=== PATIENT | female | born 1985 | race Two or more races ===

== ENCOUNTER 2024-07-13 08:09 | Emergency (ER) | payer MEDICAID, SELFPAY ==
[2024-07-13 08:10] VITALS: BMI 35.6
[2024-07-13 08:17] VITALS: BP 140/73; PULSE 100; RESP 20; TEMP 36.9; O2SAT 99
--- NOTE | 2024-07-13 08:35 | PD.EDLOWEX ---
Lower Extremity Injury RME/HPI General Chief Complaint: Extremity Injury, Lower Stated Complaint: LEFT KNEE PAIN SINCE THIS AM Time Seen by Provider: 07/13/24 08:13 Arrival date/time: 07/13/24 08:09 39-year-old female presents emergency department complains of left knee pain ongoing for the last couple of months after injury. Patient reports she is frustrated she has been unable to get an MRI Limitations: no limitations Related Data Home Medications ?Medication ?Instructions ?Recorded ?Confirmed prenat.vits,ivon,[id number] 1 tab PO QDAY 12/17/20 12/17/20 Previous Rx's ?Medication ?Instructions ?Recorded ibuprofen 800 mg tablet 800 mg PO TID PRN pain #30 tabs 05/09/21 ibuprofen 800 mg tablet 800 mg PO TID PRN pain #30 tabs 01/09/22 cephalexin 500 mg capsule 500 mg PO BID #20 caps 01/26/22 ibuprofen 800 mg tablet 800 mg PO TID PRN pain #30 tabs 06/09/22 acetaminophen 500 mg tablet 500 mg PO Q6H PRN pain #60 tabs 01/01/24 (Tylenol Extra Strength) ibuprofen 600 mg tablet 600 mg PO Q6H PRN pain #30 tabs 01/01/24 acetaminophen 500 mg capsule 1,000 mg (2 x 500 mg) PO Q6H PRN 01/05/24 fever or pain #30 caps amoxicillin 500 mg capsule 500 mg PO TID #30 caps 01/05/24 ibuprofen 800 mg tablet 800 mg PO TID PRN pain #30 tabs 01/05/24 ondansetron 4 mg disintegrating 4 mg PO Q8H PRN nausea and 01/13/24 tablet vomiting #20 tabs ibuprofen 800 mg tablet 800 mg PO TID PRN pain #30 tabs 04/14/24 cyclobenzaprine 10 mg tablet 10 mg PO TID PRN muscle spasm 10 07/13/24 days #30 tab-caps ibuprofen 800 mg tablet 800 mg PO TID PRN pain #30 tabs 07/13/24 Allergies Allergy/AdvReac Type Severity Reaction Status Date / Time No Known Allergies Allergy Verified 07/13/24 08:12 Review of Systems Review of Systems Systems Reviewed: All systems reviewed, normal except as documented Constitutional Constitutional: Reports system reviewed and no additional complaints, except as documented and Denies fever(s) Eyes Eyes: Reports system reviewed and no additional complaints, except as documented and Denies blurry vision ENT Ears, Nose, Mouth, and Throat: Reports system reviewed and no additional complaints, except as documented, Denies nasal congestion and Denies nasal discharge Cardiovascular Cardiovascular: Reports system reviewed and no additional complaints, except as documented, Denies chest pain and Denies dyspnea Respiratory Respiratory: Reports system reviewed and no additional complaints, except as documented, Denies chest congestion, Denies cough and Denies dyspnea Gastrointestinal Gastrointestinal: Reports system reviewed and no additional complaints, except as documented and Denies abdominal pain Musculoskeletal Musculoskeletal: Reports system reviewed and no additional complaints, except as documented, Reports arthralgias, Denies deformity, Reports joint swelling, Denies numbness, Reports stiffness and Denies tingling Integumentary/Breasts Skin/Breast: Reports system reviewed and no additional complaints, except as documented and Denies rash Neurologic Neurologic: Denies numbness and Denies tingling Past Medical History Past Medical History NEUROLOGIC: Negative Neurological Disorders CARDIAC: Negative Cardiac Disorders or Congestive Heart Failure RESPIRATORY: Negative Chronic Obstructive Pulmonary Disease (COPD) or Asthma GASTROINTESTINAL: Positive Gastrointestinal Disorders, Gall Bladder Disease and Obesity GENITOURINARY: Negative Genitourinary Disorders or Renal Disease MUSCULOSKELETAL: Positive Musculoskeletal Disorders and Arthritis ENDOCRINE: Negative Endocrine Disorders, Diabetes Mellitus Type 1 or Diabetes Mellitus Type 2 HEMATOLOGIC: Negative Blood Disorders or Sickle Cell Disease OTHER HISTORY: Positive Falls; Negative Autoimmune Disease Family History FAMILY HISTORY: Negative Family Psychiatric Problems, Family Respiratory Disorders, Family Cardiac Disorders, Family Gastrointestinal Problems, Family Cancer, Family Surgery or Family Anesthesia Reaction Surgical History SURGICAL: Positive Section Social History SMOKING STATUS: Current every day smoker SUBSTANCE USE: does not use ED Exam General Limitations: Present no limitations General appearance: Present alert and in no apparent distress Head Head exam: Present atraumatic Eye Eye exam: Present normal appearance, PERRL and EOMI ENT ENT exam: Present normal exam, normal oropharynx and mucous membranes moist Neck Neck exam: Present normal inspection, full ROM and trachea midline Chest Chest inspection: Present normal inspection and symmetric chest wall rise Respiratory Respiratory exam: Present normal lung sounds bilaterally Cardiovascular Cardiovascular exam: Present regular rate, normal rhythm and normal heart sounds Abdominal Exam Abdominal exam: Present soft and normal bowel sounds Extremities Exam Extremities exam: Present full ROM, tenderness, normal capillary refill and joint swelling; Absent pedal edema or calf tenderness Back Exam Back exam: Present normal inspection and full ROM Neurological Exam Neurological exam: Present alert, oriented X3 and CN II-XII intact Psychiatric Psychiatric exam: Present normal affect and normal mood Skin Skin exam: Present warm, dry, intact and normal color Course Quality Measures none Orders Category Date Time Status Ketorolac Inj [Toradol Inj] Med 07/13/24 08:35 Discontinued 30 mg IM X1 ONE Vital Signs Vital signs: Vital Signs Temperature 98.5 F 07/13/24 08:17 Pulse Rate 100 07/13/24 08:17 Respiratory Rate 20 07/13/24 08:17 Blood Pressure 140/73 H 07/13/24 08:17 Pulse Oximetry (%) 99 07/13/24 08:17 Oxygen Delivery Method Room Air 07/13/24 08:17 O2 saturation 99% room air with normal Extremity Injury, Lower MDM Narrative MDM Narrative:: 39-year-old female presents emergency department complains of left knee pain ongoing for the last couple of months after injury. Patient reports she is frustrated she has been unable to get an MRI On exam patient is negative Homans' sign no calf tenderness Patient does have mild tenderness left knee but patient does have full range of motion and patient is ambulatory I explained the patient should also follow-up with an MRI in outpatient basis Patient was given pain medication here Patient discharged home in no distress to follow-up with primary care doctor in the next 24 to 48 hours and for any worsening symptoms to return to the ER immediately Patient data External records reviewed:: [facility] previous records Clinical information provided by:: patient Social determinants that could affect healthcare access:: none Patient has the following chronic illnesses:: See history How is presenting disease/condition affected by chronic disease/condition?: caused by Evaluation data The following diagnostics were reviewed and interpreted by me:: radiology exam(s) Lab and/or radiology exams considered but not ordered:: Radiology obtained Interpretation Summary: Reviewed by me Medications / Prescriptions Medications or Prescriptions considered but not ordered:: Given Medication administrations:: Medication Administration History Discontinued Medications Ketorolac Tromethamine (Ketorolac Inj 30 Mg/Ml Vial) 30 mg IM X1 ONE Stop: 07/13/24 08:36 Last Admin: 07/13/24 08:50 Dose: 30 mg Documented By: TM Given Consultations Consultation(s) initiated? (list below): No Diagnosis Extremity Injury, Lower Differential Diagnosis: acute internal derangement of knee and other (Knee sprain knee fracture) Most likely diagnosis given after review of the tests above:: Knee sprain Admission Indicated Admission indicated?: not indicated Admission Request Was there a request for admission?: No Disposition Plan Disposition Plan: Discharge Discharge Attestation Discharge Attestation: The patient and all family members were given an opportunity to ask questions and understood the discharge instructions. Discharge instructions specifically effects, indications for sooner follow up or return to the emergency department, and the expected course of current diagnosis. Patient condition: Stable Discharge Plan Plan Patient Disposition: HOME (Self Care) Disposition Comment: Stable Prescriptions/Referrals Prescriptions/Med Rec: New cyclobenzaprine 10 mg tablet 10 mg PO TID PRN (Reason: muscle spasm) 10 Days Qty: 30 0RF ibuprofen 800 mg tablet 800 mg PO TID PRN (Reason: pain) Qty: 30 0RF No Action ibuprofen 800 mg tablet 800 mg PO TID PRN (Reason: pain) Qty: 30 0RF Vitamin Tablet 1 tab PO QDAY ibuprofen 800 mg tablet 800 mg PO TID PRN (Reason: pain) Qty: 30 0RF cephalexin 500 mg capsule 500 mg PO BID Qty: 20 0RF ibuprofen 800 mg tablet 800 mg PO TID PRN (Reason: pain) Qty: 30 0RF ibuprofen 600 mg tablet 600 mg PO Q6H PRN (Reason: pain) Qty: 30 0RF acetaminophen [Tylenol Extra Strength] 500 mg tablet 500 mg PO Q6H PRN (Reason: pain) Qty: 60 0RF amoxicillin 500 mg capsule 500 mg PO TID Qty: 30 0RF ibuprofen 800 mg tablet 800 mg PO TID PRN (Reason: pain) Qty: 30 0RF acetaminophen 500 mg capsule 1,000 mg PO Q6H PRN (Reason: fever or pain) Qty: 30 0RF ondansetron 4 mg tablet,disintegrating 4 mg PO Q8H PRN (Reason: nausea and vomiting) Qty: 20 0RF ibuprofen 800 mg tablet 800 mg PO TID PRN (Reason: pain) Qty: 30 0RF Problem List Clinical Impression: Knee pain, left Patient/Caregiver Discharge Instructions Education Materials: ED Arthralgia Additional Instructions: Please follow up with your primary care doctor in the next 24-48hrs for any worsening symptoms return here immediately Print Language: Cook Islander Stand Alone Forms: Jadyn Award Info., Patient Portal Info Letter PA/CORE PILER Supervising Physician PA/CORE PILER Supervising Physician: Dr. anand
[2024-07-13] MEDS: KETOROLAC INJ 30 MG/ML VIAL IM (08:50)
== END 2024-07-13 08:53 | disposition home or self-care (01) ==
LOC: SERX 08:56
PROVIDERS: Emergency Provider Emergency Medicine; PCP Family Medicine
DX: M25.562 Pain in left knee (principal)
CPT/HCPCS: 96372; 99283; J1885

== ENCOUNTER 2024-08-04 18:54 | Emergency (ER) | payer MEDICAID, SELFPAY ==
[2024-08-04 19:43] VITALS: BP 127/85; PULSE 78; RESP 18; TEMP 36.9; O2SAT 98; BMI 35.6
--- NOTE | 2024-08-04 20:01 | PD.EDEAR ---
ED Ear RME/HPI General Chief complaint: Ear Stated complaint: BUG IN LEFT EAR X 2 DAYS Time Seen by Provider: 08/04/24 19:17 Arrival date/time: 08/04/24 18:54 39F with no significant PMH presents to ED with bug in L ear for 2 days. Limitations: no limitations Related Data Home Medications ?Medication ?Instructions ?Recorded ?Confirmed prenat.vits,ivon,[id number] 1 tab PO QDAY 12/17/20 12/17/20 Previous Rx's ?Medication ?Instructions ?Recorded ibuprofen 800 mg tablet 800 mg PO TID PRN pain #30 tabs 05/09/21 ibuprofen 800 mg tablet 800 mg PO TID PRN pain #30 tabs 01/09/22 cephalexin 500 mg capsule 500 mg PO BID #20 caps 01/26/22 ibuprofen 800 mg tablet 800 mg PO TID PRN pain #30 tabs 06/09/22 acetaminophen 500 mg tablet 500 mg PO Q6H PRN pain #60 tabs 01/01/24 (Tylenol Extra Strength) ibuprofen 600 mg tablet 600 mg PO Q6H PRN pain #30 tabs 01/01/24 acetaminophen 500 mg capsule 1,000 mg (2 x 500 mg) PO Q6H PRN 01/05/24 fever or pain #30 caps amoxicillin 500 mg capsule 500 mg PO TID #30 caps 01/05/24 ibuprofen 800 mg tablet 800 mg PO TID PRN pain #30 tabs 01/05/24 ondansetron 4 mg disintegrating 4 mg PO Q8H PRN nausea and 01/13/24 tablet vomiting #20 tabs ibuprofen 800 mg tablet 800 mg PO TID PRN pain #30 tabs 04/14/24 ibuprofen 800 mg tablet 800 mg PO TID PRN pain #30 tabs 07/13/24 Allergies Allergy/AdvReac Type Severity Reaction Status Date / Time No Known Allergies Allergy Verified 08/04/24 18:55 Review of Systems Review of Systems Systems Reviewed: All systems reviewed, normal except as documented Constitutional Constitutional: Reports system reviewed and no additional complaints, except as documented, Denies fever(s) and Denies headache(s) ENT Ears, Nose, Mouth, and Throat: Reports as per HPI, Denies disequilibrium, Reports otalgia (FB) and Denies headache(s) Cardiovascular Cardiovascular: Reports system reviewed and no additional complaints, except as documented, Denies chest pain and Denies dyspnea Respiratory Respiratory: Reports system reviewed and no additional complaints, except as documented, Denies cough and Denies dyspnea Gastrointestinal Gastrointestinal: Reports system reviewed and no additional complaints, except as documented, Denies abdominal pain, Denies nausea and Denies vomiting Neurologic Neurologic: Reports system reviewed and no additional complaints, except as documented, Denies confusion, Denies disequilibrium and Denies headache(s) Psychiatric Psychiatric: Denies confusion Past Medical History Past Medical History NEUROLOGIC: Negative Neurological Disorders CARDIAC: Negative Cardiac Disorders or Congestive Heart Failure RESPIRATORY: Negative Chronic Obstructive Pulmonary Disease (COPD) or Asthma GASTROINTESTINAL: Positive Gastrointestinal Disorders, Gall Bladder Disease and Obesity GENITOURINARY: Negative Genitourinary Disorders or Renal Disease MUSCULOSKELETAL: Positive Musculoskeletal Disorders and Arthritis ENDOCRINE: Negative Endocrine Disorders, Diabetes Mellitus Type 1 or Diabetes Mellitus Type 2 HEMATOLOGIC: Negative Blood Disorders or Sickle Cell Disease OTHER HISTORY: Positive Falls; Negative Autoimmune Disease Family History FAMILY HISTORY: Negative Family Psychiatric Problems, Family Respiratory Disorders, Family Cardiac Disorders, Family Gastrointestinal Problems, Family Cancer, Family Surgery or Family Anesthesia Reaction Surgical History SURGICAL: Positive Section Social History SMOKING STATUS: Heavy (> 1 pack/day) SUBSTANCE USE: does not use ED Exam General Limitations: Present no limitations General appearance: Present alert and in no apparent distress Head Head exam: Present atraumatic Eye Eye exam: Present normal appearance, PERRL and EOMI ENT ENT exam: Present normal oropharynx and mucous membranes moist Expanded ENT Exam TM/Canal exam: Left TM: foreign body Neck Neck exam: Present normal inspection, full ROM and trachea midline Chest Chest inspection: Present normal inspection and symmetric chest wall rise Respiratory Respiratory exam: Present normal lung sounds bilaterally Cardiovascular Cardiovascular exam: Present regular rate, normal rhythm and normal heart sounds Abdominal Exam Abdominal exam: Present soft and normal bowel sounds Extremities Exam Extremities exam: Present normal inspection and full ROM Back Exam Back exam: Present normal inspection and full ROM Neurological Exam Neurological exam: Present alert, oriented X3 and CN II-XII intact Psychiatric Psychiatric exam: Present normal affect and normal mood Skin Skin exam: Present warm, dry, intact and normal color Course Quality Measures none Orders Category Date Time Status ED Ear Irrigation X1 Care 08/04/24 20:09 Active Vital Signs Vital signs: Vital Signs Temperature 98.5 F 08/04/24 19:43 Pulse Rate 78 08/04/24 19:43 Respiratory Rate 18 08/04/24 19:43 Blood Pressure 127/85 H 08/04/24 19:43 Pulse Oximetry (%) 98 08/04/24 19:43 Oxygen Delivery Method Room Air 08/04/24 19:43 O2 at 98% on RA and WNLs Ear MDM Narrative MDM Narrative:: 39F with no significant PMH presents to ED with bug in L ear for 2 days. Physical exam reveals bug in L ear. Patient is afebrile, calm, and alert. Insect removed. No trauma/bleeding in ear canal. Patient data External records reviewed:: [facility] previous records Clinical information provided by:: patient Social determinants that could affect healthcare access:: none Patient has the following chronic illnesses:: none How is presenting disease/condition affected by chronic disease/condition?: no chronic disease Evaluation data The following diagnostics were reviewed and interpreted by me:: other (specify) (none) Lab and/or radiology exams considered but not ordered:: not ordered Interpretation Summary: n/a Medications / Prescriptions Medications or Prescriptions considered but not ordered:: not ordered Medication administrations:: n/a Consultations Consultation(s) initiated? (list below): No Diagnosis Ear Differential Diagnosis: otitis externa, otitis media, foreign body in ear, ruptured TM and cerumen impaction Most likely diagnosis given after review of the tests above:: FB ear Admission Indicated Admission indicated?: not indicated Admission Request Was there a request for admission?: No Disposition Plan Disposition Plan: Discharge Discharge Attestation Discharge Attestation: The patient and all family members were given an opportunity to ask questions and understood the discharge instructions. Discharge instructions specifically effects, indications for sooner follow up or return to the emergency department, and the expected course of current diagnosis. Patient condition: Stable Discharge Plan Plan Patient Disposition: HOME (Self Care) Disposition Comment: Stable Prescriptions/Referrals Prescriptions/Med Rec: No Action ibuprofen 800 mg tablet 800 mg PO TID PRN (Reason: pain) Qty: 30 0RF Vitamin Tablet 1 tab PO QDAY ibuprofen 800 mg tablet 800 mg PO TID PRN (Reason: pain) Qty: 30 0RF cephalexin 500 mg capsule 500 mg PO BID Qty: 20 0RF ibuprofen 800 mg tablet 800 mg PO TID PRN (Reason: pain) Qty: 30 0RF ibuprofen 600 mg tablet 600 mg PO Q6H PRN (Reason: pain) Qty: 30 0RF acetaminophen [Tylenol Extra Strength] 500 mg tablet 500 mg PO Q6H PRN (Reason: pain) Qty: 60 0RF amoxicillin 500 mg capsule 500 mg PO TID Qty: 30 0RF ibuprofen 800 mg tablet 800 mg PO TID PRN (Reason: pain) Qty: 30 0RF acetaminophen 500 mg capsule 1,000 mg PO Q6H PRN (Reason: fever or pain) Qty: 30 0RF ondansetron 4 mg tablet,disintegrating 4 mg PO Q8H PRN (Reason: nausea and vomiting) Qty: 20 0RF ibuprofen 800 mg tablet 800 mg PO TID PRN (Reason: pain) Qty: 30 0RF ibuprofen 800 mg tablet 800 mg PO TID PRN (Reason: pain) Qty: 30 0RF Referrals: Justo Wynn MD [Primary Care Provider] - In 1 week Problem List Clinical Impression: FB ear Patient/Caregiver Discharge Instructions Additional Instructions: Please follow-up with PCP within 24-48 hours and return immediately if symptoms worsen. Print Language: Sudanese Stand Alone Forms: Patient Portal Info Letter TERRANCE/VIN Supervising Physician TERRANCE/VIN Supervising Physician: Dr. Campa
== END 2024-08-04 20:56 | disposition home or self-care (01) ==
PROVIDERS: Emergency Provider Emergency Medicine; PCP Family Medicine
DX: T16.2XXA Foreign body in left ear, initial encounter (principal); W44.F4XA Insect entering into or through a natural orifice, initial encounter
CPT/HCPCS: 69200; 99283

== ENCOUNTER 2024-08-13 21:28 | Emergency (ER) | payer MEDICAID, SELFPAY ==
[2024-08-13 21:28] VITALS: BMI 35.6
[2024-08-13 21:46] VITALS: BP 135/92; PULSE 82; RESP 18; TEMP 37.1; O2SAT 96
--- NOTE | 2024-08-13 21:50 | XR_ITS ---
Examination: Wrist, right 3 views Technique: Wrist AP, oblique, lateral 3 views Date and time of exam: August 13, 2024 2158 hrs. Indications: Injury to the wrist today, wrist pain. Findings: No acute fracture. No dislocation No foreign body Impression: No acute fracture
--- NOTE | 2024-08-13 21:50 | XR_ITS ---
Examination: Hand, right 3 views Technique: Hand AP, oblique, lateral 3 views Date and time of exam: August 13, 2024 2158 hrs. Indications: Injury to the hand today, hand pain Findings: No acute fracture No dislocation No foreign body Impression: No acute fracture
--- NOTE | 2024-08-13 21:51 | PD.EDRME ---
Rapid Medical Screening Exam RME Arrival date/time: 08/13/24 21:28 39 year old female present to ED for c/o of hand/wrist injury today I have greeted and performed a focused initial assessment of this patient. A comprehensive ED assessment and evaluation of the patient, analysis of all test results, and completion of the medical decision making process will be conducted by additional ED providers. Chief Complaint: Extremity Injury, Upper Time Seen by Provider: 08/13/24 21:33 Vital signs: Vital Signs Temperature 98.7 F 08/13/24 21:46 Pulse Rate 82 08/13/24 21:46 Respiratory Rate 18 08/13/24 21:46 Blood Pressure 135/92 H 08/13/24 21:46 Pulse Oximetry (%) 96 08/13/24 21:46 Oxygen Delivery Method Room Air 08/13/24 21:46
[2024-08-13] MEDS: IBUPROFEN TAB 600 MG TABLET PO (21:57)
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
== END 2024-08-13 22:40 | disposition home or self-care (01) ==
PROVIDERS: Emergency Provider Emergency Medicine
DX: S60.221A Contusion of right hand, initial encounter (principal); S69.91XA Unspecified injury of right wrist, hand and finger(s), initial encounter; V19.9XXA Pedal cyclist (driver) (passenger) injured in unspecified traffic accident, initial encounter; Y93.55 Activity, bike riding
CPT/HCPCS: 29125; 73110; 73130; 99283; A9270

== ENCOUNTER 2024-12-15 13:37 | Emergency (ER) | payer MEDICAID, SELFPAY ==
[2024-12-15 13:38] VITALS: BP 115/76; PULSE 90; RESP 17; TEMP 36.7; O2SAT 96
[2024-12-15 13:39] VITALS: BMI 38.6
--- NOTE | 2024-12-15 13:39 | XR_ITS ---
Examination: CT abdomen and pelvis without contrast. Coronal 3-D reconstructions. Sagittal 2-D reconstructions. Date and time of exam:The second 2024 1541 hours Comparison January 06, 2020 INDICATIONS: Onset severe left flank pain today CTDI: vol (mGy): 13.1 DLP: (mGycm): 787 Technique: Axial images of the abdomen have been obtained, 3 mm slice thickness Intravenous contrast material has not been administered. Low dose protocols were performed. One or more of the following dose reduction techniques were used; automated exposure control, adjustment of the mA and/or KV according to patient size, use of iterative reconstruction technique. Findings: 3 mm pulmonary nodule right lower lobe image 43 No focal liver or splenic lesion Gallstones No pancreatic mass Common bile duct 6 mm No pancreatic mass Mild left hydronephrosis secondary to 6 mm distal left ureterovesical junction calculus Mild thickening of urinary bladder wall No pelvic mass No bowel obstruction No pericecal inflammatory change Distended urinary bladder IMPRESSION: 3 mm pulmonary nodule right lower lobe, consider AP chest follow-up Mild left hydronephrosis secondary to 6 mm distal left ureterovesical junction calculus Cystitis pattern
--- NOTE | 2024-12-15 13:39 | EKG_ITS ---
[facility] Test Date: 2024-12-15 Pat Name: KATHRIN BOWSER Department: Room: - Gender: Female Insurance Producer: : [id number] Requested By: Renae Gusman Order Number: [id number] Reading MD: Renae Gusman Measurements Intervals [place] Rate: 88 P: 45 ME: 136 QRS: 54 QRSD: 79 T: 53 QT: 362 QTc: 438 Interpretive Statements SINUS RHYTHM Compared to ECG 11/29/2019 14:42:46 No significant changes /store/S0/[id number].pdf
--- NOTE | 2024-12-15 13:40 | EDNOTE_ITS ---
<Statement entered by Keila Chicas MD - 12/17/24 04:31> As co-signing physician, I was present and available for consult prn. I concur with the plan and care as documented by the midlevel provider. ED Abdominal Pain RME/HPI General Chief Complaint: Abdominal Pain Stated complaint: LOWER BACK PAIN Time seen by provider: 12/15/24 13:39 Arrival date/time: 12/15/24 13:37 RME / HPI RME / HPI narrative: 39-year-old female patient with history of gallstone, came in for evaluation regarding left leg pain. 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 Associated with vomiting no fever no diarrhea no constipation hematuria no dysuria no other complaints noted no medications taken prior to arrival. Related Data Home Medications ?Medication ?Instructions ?Recorded ?Confirmed prenat.vits,ivon,[id number] 1 tab PO QDAY 12/17/20 12/17/20 Previous Rx's ?Medication ?Instructions ?Recorded ibuprofen 800 mg tablet 800 mg PO TID PRN pain #30 t abs 05/09/21 ibuprofen 800 mg tablet 800 mg PO TID PRN pain #30 t abs 01/09/22 cephalexin 500 mg capsule 500 mg PO BID #20 caps 01/26 ibuprofen 800 mg tablet 800 mg PO TID PRN pain #30 t abs 06/09/22 acetaminophen 500 mg tablet 500 mg PO Q6H PRN pain #60 tabs 01/01/24 (Tylenol Extra Strength) ibuprofen 600 mg tablet 600 mg PO Q6H PRN pain #30 t abs 01/01/24 acetaminophen 500 mg capsule 1,000 mg (2 x 500 mg) PO Q6H PRN 01/05/24 fever or pain #30 caps amoxicillin 500 mg capsule 500 mg PO TID #30 caps 12/15 10/09 ibuprofen 800 mg tablet 800 mg PO TID PRN pain #30 t abs 01/05/24 ondansetron 4 mg disintegrating 4 mg PO Q8H PRN nausea and 01/13/24 tablet vomiting #20 tabs ibuprofen 800 mg tablet 800 mg PO TID PRN pain #30 t abs 04/14/24 ibuprofen 800 mg tablet 800 mg PO TID PRN pain #30 t abs 07/13/24 cefuroxime axetil 500 mg tablet 500 mg PO BID #14 tabs 12/15/24 ibuprofen 800 mg tablet 800 mg PO Q8H PRN pain #30 t abs 12/15/24 Allergies Allergy/AdvReac Type Severity Reaction Status Date / Time No Known Allergies Allergy Verified 08/04/24 18:55 Review of Systems Review of Systems Narrative Review of Systems: Review of system reviewed and within normal limits except mentioned in HPI ED Exam Narrative Physical exam: VITAL SIGNS: Reviewed. GENERAL APPEARANCE: Alert and interactive, follows commands, no acute distress, HEAD AND FACE: Non-traumatic. ENT: PERRL, pink conjunctivitis, eyelid no trauma, Mucous membrane moist. NECK: Supple, nontender, no nuchal rigidity. CHEST: No tenderness, no crepitus, no paradoxical movement, no retractions. LUNGS: Clear, well ventilated, symmetric, no rales, no wheezing, no ronchi, no stridor, good breath sounds bilaterally. HEART: Regular rate, regular rhythm, no murmur, no gallops. ABDOMEN: Soft, positive bowel sounds, nondistended, no guarding, nontender, no rebound, no masses, left flank tenderness RECTAL: Deferred. GENITAL: Deferred. NEUROLOGICAL: Gross motor function intact sensory function intact, Appropriate for age. MUSCULOSKELETAL: low back nontender, full range of motion. EXTREMITIES: Nontender, full range of motion. SKIN: Color pink, dry, no rash, no lacerations, no abrasions, no contusions. LYMPHATICS: Deferred. Course Quality Measures none Orders Category Date Time Status EKG (ED ONLY) *Do not use* NOW Care 12/15/24 13:39 Completed Insert IV NOW Care 12/15/24 17:45 Completed Straight [In and Out Catheter] X1 Care 12/15/24 17:[address] abdomen pelvis wo con Stat Exams 12/15/24 13:39 Completed EKG (ED Only) Stat Exams 12/15/24 13:39 Draft CBC Stat Lab 12/15/24 13:48 Completed Comprehensive Metabolic Panel Stat Lab 12/15/24 13:48 Completed HCG Qualitative,Urine Stat Lab 12/15/24 14:52 Completed Lipase Stat Lab 12/15/24 13:48 Completed Prothrombin Time with INR Stat Lab 12/15/24 13:48 Completed UA, C/S IF [Urinalysis, C/S if Indicated] Stat Lab 12/15/24 14:52 Completed UA, C/S IF [Urinalysis, C/S if Indicated] Stat Lab 12/15/24 17:48 Completed Urine Culture Stat Lab 12/15/24 17:48 Received Ketorolac Inj [Toradol Inj] Med 12/15/24 13:39 Discontinued 30 mg IM X1 ONE Sodium Chloride 0.9% 1000 ml [Ns] 1,000 ml Med 12/15/24 17:04 Discontinued IV 999 mls/hr cefTRIAXone/D5w 1gm IV premix [Rocephin/D5w 1gm IV Med 12/15/24 17:04 Discontinued premix] 1 gm in 50 ml IV X1 Vital Signs Vital signs: Vital Signs Temperature 98.0 F 12/15/24 13:38 Pulse Rate 90 12/15/24 13:38 Respiratory Rate 17 12/15/24 13:38 Blood Pressure 115/76 12/15/24 13:38 Pulse Oximetry (%) 96 12/15/24 13:38 Oxygen Delivery Method Room Air 12/15/24 13:38 Abdominal Pain MDM MDM Narrative MDM Narrative:: 39-year-old female patient with history of gallstone, came in for evaluation regarding left leg pain. 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 Associated with vomiting no fever no diarrhea no constipation hematuria no dysuria no other complaints noted no medications taken prior to arrival. Patient CBC showed 12.7 leukocytosis. Urinalysis positive for UTI CT scan of the abdomen pelvis showed 3 mm pulmonary nodule right lower lobe, consider AP chest follow-up Mild left hydronephrosis secondary to 6 mm distal left ureterovesical junction calculus Cystitis pattern EKG showed normal sinus rhythm, ventricular rate of 88 bpm, no ST segment elevation or depression noted. Patient received IV fluids for hydration, IV ceftriaxone, and Toradol. On reevaluation patient told me that her pain is totally gone patient is afebrile tolerating p.o. fluids. Patient was advised to return to emergency room right away for fever, worsening pain vomiting. Patient was also advised to follow-up with PCP in the morning and for referral to urologist Patient data External records reviewed:: None Clinical information provided by:: patient Social determinants that could affect healthcare access:: none Patient has the following chronic illnesses:: None How is presenting disease/condition affected by chronic disease/condition?: no chronic disease Evaluation data The following diagnostics were reviewed and interpreted by me:: lab results, radiology exam(s) and EKG tracing(s) Lab and/or radiology exams considered but not ordered:: None Interpretation Summary: See results MDM Medications / Prescriptions Medications or Prescriptions considered but not ordered:: stable Medication administrations:: Medication Administration History Discontinued Medications Ceftriaxone Sodium/Dextrose (Rocephin/D5w 1gm Iv Premix) 1 gm in 50 mls @ 100 mls/hr IV X1 ONE Stop: 12/15/24 17:33 Last Infusion: 12/15/24 18:35 Dose: Infused Documented By: Admin: 12/15/24 17:59 Dose: 100 mls/hr Documented By: FLETCHER Sodium Chloride (Ns) 1,000 mls @ 999 mls/hr IV .Q1H1M ONE Stop: 12/15/24 18:04 Last Infusion: 12/15/24 19:03 Dose: Infused Documented By: Admin: 12/15/24 17:59 Dose: 999 mls/hr Documented By: FLETCHER Ketorolac Tromethamine (Ketorolac Inj 60 Mg/2 Ml Vial) 30 mg IM X1 ONE Stop: 12/15/24 13:40 Last Admin: 12/15/24 15:17 Dose: 30 mg Documented By: FLETCHER Toradol, IV fluid/ceftriaxone IV Consultations Consultation(s) initiated? (list below): No Diagnosis Differential diagnosis abdominal pain: abdominal pain and calculus of kidney Most likely diagnosis given after review of the tests above:: UTI, ureterolithiasis Admission Indicated Admission indicated?: not indicated Admission Request Was there a request for admission?: No Disposition Plan Disposition Plan: Discharge Discharge Attestation Discharge Attestation: The patient was given an opportunity to ask questions and understood the discharge instructions. Discharge instructions specifically effects, indications for sooner follow up or return to the emergency department, and the expected course of current diagnosis. Patient condition: Stable Discharge Plan Plan Patient Disposition: HOME (Self Care) Discharge Disposition comment: Stable Prescriptions/Referrals Prescriptions/Med Rec: New cefuroxime axetil 500 mg tablet 500 mg PO BID Qty: 14 0RF ibuprofen 800 mg tablet 800 mg PO Q8H PRN (Reason: pain) Qty: 30 0RF No Action ibuprofen 800 mg tablet 800 mg PO TID PRN (Reason: pain) Qty: 30 0RF Vitamin Tablet 1 tab PO QDAY ibuprofen 800 mg tablet 800 mg PO TID PRN (Reason: pain) Qty: 30 0RF cephalexin 500 mg capsule 500 mg PO BID Qty: 20 0RF ibuprofen 800 mg tablet 800 mg PO TID PRN (Reason: pain) Qty: 30 0RF ibuprofen 600 mg tablet 600 mg PO Q6H PRN (Reason: pain) Qty: 30 0RF acetaminophen [Tylenol Extra Strength] 500 mg tablet 500 mg PO Q6H PRN (Reason: pain) Qty: 60 0RF amoxicillin 500 mg capsule 500 mg PO TID Qty: 30 0RF ibuprofen 800 mg tablet 800 mg PO TID PRN (Reason: pain) Qty: 30 0RF acetaminophen 500 mg capsule 1,000 mg PO Q6H PRN (Reason: fever or pain) Qty: 30 0RF ondansetron 4 mg tablet,disintegrating 4 mg PO Q8H PRN (Reason: nausea and vomiting) Qty: 20 0RF ibuprofen 800 mg tablet 800 mg PO TID PRN (Reason: pain) Qty: 30 0RF ibuprofen 800 mg tablet 800 mg PO TID PRN (Reason: pain) Qty: 30 0RF Referrals: Jose Slaughter PA-C [Primary Care Provider] - In 1 week Problem List Clinical Impression: UTI (urinary tract infection), Ureterolithiasis Patient/Caregiver Discharge Instructions Discharge Activity: activity as tolerated Education Materials: ED Kidney Stone w/ Colic Additional Instructions: Thank you for the opportunity for serving you today. You are stable for discharged . You are advised to: Follow-up with your PCP in 1 to 2 days and as per referral to urologist Return to ED for worsening of symptoms, fever, vomiting, worsening pain Increase oral fluids Take medication as prescribed Print Language: Bolivian Stand Alone Forms: Jadyn Award Info., Patient Portal Info Letter PA/VIN Supervising Physician VANESSA Supervising Physician: MD Aviva
[2024-12-15 13:41] VITALS: PULSE 96; RESP 18; O2SAT 98
[2024-12-15 14:07] LABS: Basophils # (Auto) 0.1 Thou/mm3 (0.0-0.2); Basophils % (Auto) 1 % (0-2.5); Eosinophils # (Auto) 0.1 Thou/mm3 (0.0-0.5); Eosinophils % (Auto) 1 % (0-10); Hematocrit 32.2 % (36.0-46.0); Hemoglobin 10.1 g/dL (12.0-16.0); Immature Granulocytes % (Auto) 0 % (0-0); Immature Granulocytes Auto 0.04 Thou/mm3 (0.00-0.00); Lymphocytes # (Auto) 2.2 Thou/mm3 (1.0-4.8); Lymphocytes % (Auto) 18 % (10-50); Mean Corpuscular HGB Conc 31.4 g/dl (31.0-37.0); Mean Corpuscular Hemoglobin 22.4 pg (25.0-35.0); Mean Corpuscular Volume 71 fL (80-100); Monocytes # (Auto) 0.6 Thou/mm3 (0.0-0.8); Monocytes % (Auto) 5 % (0-12); Neutrophils # (Auto) 9.6 Thou/mm3 (1.8-7.7); Neutrophils % (Auto) 75 % (37-80); Nucleated Red Blood Cell % 0 /100 WBC (0); Platelet Count 389 Thou/mm3 (140-440); RDW Standard Deviation 45.2 fL (36.4-46.3); Red Blood Count 4.51 Miln/mm3 (4.00-5.20); White Blood Count 12.7 Thou/mm3 (3.6-11.0)
[2024-12-15 14:19] LABS: Prothrombin Time 10.6 Seconds (9.0-12.2)
[2024-12-15 14:25] LABS: Alanine Aminotransferase 15 U/L (10-49); Albumin, Serum 4.4 gm/dL (3.5-5.0); Albumin/Globulin Ratio 1.6 (1.2-2.2); Alkaline Phosphatase 77 U/L (46-116); Anion Gap 9 (7-16); Aspartate Amino Transferase 25 U/L (0-34); BUN/Creatinine Ratio 22 Ratio (12-20); Bilirubin,Total 0.7 mg/dL (0.3-1.2); Blood Urea Nitrogen 20 mg/dL (9-23); Calcium 8.7 mg/dL (8.3-10.6); Calcium (Corrected) 8.7 mg/dL (8.5-10.1); Carbon Dioxide 24.9 mMol/L (20.0-31.0); Chloride 106 mMol/L (98-107); Creatinine (Component) 0.9 mg/dL (0.6-1.3); Estimated Creatinine Clearance 98.5 mL/min (>60); Globulin 2.7 gm/dL (2.3-3.5); Glucose 134 mg/dL (74-106); Lipase 28 U/L (12-53); Osmolality,Calculated 284 (275-295); Potassium 3.6 mMol/L (3.4-5.1); Sodium 140 mMol/L (136-145); Total Protein 7.1 gm/dL (5.7-8.2); eGFR > 60 See Note
[2024-12-15 14:52] VITALS: BP 125/86; PULSE 92; RESP 19; TEMP 36.7; O2SAT 98
[2024-12-15 14:59] LABS: Collection Type, Urine Clean Catch
[2024-12-15 15:13] LABS: HCG Qualitative,Urine Negative
[2024-12-15 15:14] LABS: Bacteria,Urine 2+; Bilirubin,Urine Negative (Negative); Blood,Urine 2+ (Negative); Clarity,Urine Turbid (Clear/Hazy); Color,Urine Yellow (Lt Yel-Yel); Culture Indicated,Urine Contaminated; Glucose, Urine Negative (Negative); Ketones,Urine Negative (Negative); Leukocyte Esterase,Urine Positive (Negative); Nitrite,Urine Positive (Negative); Protein,Urine 1+ (Neg - Trace); RBC,Urine 49 /hpf (0-3); Specific Gravity,Urine 1.032 (1.001-1.035); Squamous Epithelial Cell,Urine 18 /hpf (0-5); Urobilinogen,Urine Negative mg/dL (0.0-1.0); WBC,Urine 164 /hpf (0-5)
[2024-12-15] MEDS: KETOROLAC INJ 60 MG/2 ML VIAL 30 MG IM (15:17)
[2024-12-15 16:10] VITALS: BP 119/76; PULSE 75; RESP 19; TEMP 36.6; O2SAT 100
[2024-12-15 17:53] LABS: Collection Type, Urine Catheter
[2024-12-15] MEDS: cefTRIAXone/D5w 1gm IV premix 1 GM/50 ML BAG IV (17:59)
[2024-12-15] MEDS: SODIUM CHLORIDE 0.9% 1000 ML 1,000 ML 999 ML IV (17:59)
[2024-12-15 18:00] LABS: Bacteria,Urine 4+; Bilirubin,Urine Negative (Negative); Blood,Urine 2+ (Negative); Clarity,Urine Turbid (Clear/Hazy); Color,Urine Yellow (Lt Yel-Yel); Glucose, Urine Negative (Negative); Ketones,Urine Negative (Negative); Leukocyte Esterase,Urine Positive (Negative); Nitrite,Urine Positive (Negative); PH,Urine 5.5 (5.0-7.0); Protein,Urine Trace (Neg - Trace); RBC,Urine 17 /hpf (0-3); Specific Gravity,Urine 1.027 (1.001-1.035); Squamous Epithelial Cell,Urine 9 /hpf (0-5); Urobilinogen,Urine Negative mg/dL (0.0-1.0); WBC,Urine 96 /hpf (0-5)
[2024-12-15 18:04] VITALS: BP 140/82; PULSE 61; RESP 18; TEMP 36.9; O2SAT 98
[2024-12-15 18:21] LABS: Culture Indicated,Urine Yes
[2024-12-15 20:00] VITALS: BP 123/85; PULSE 65; RESP 22; TEMP 36.9; O2SAT 100
== END 2024-12-15 20:08 | disposition home or self-care (01) ==
PROVIDERS: Nurse Practitioner Family; Emergency Provider Emergency Medicine; PCP Physician Assistant
DX: N39.0 Urinary tract infection, site not specified (principal); N20.1 Calculus of ureter; M79.605 Pain in left leg
CPT/HCPCS: 51701; 36415; 74176; 80053; 81001; 81025; 83690; 85025; 85610; 87077; 87086; 87186; 93005; 96365; 96372; 99284; J0696; J1885; J7030

== ENCOUNTER 2025-01-04 17:39 | Inpatient (IN) | payer MEDICAID, SELFPAY ==
[2025-01-04] VITALS (11 sets, daily range): BP systolic 88–127; BP diastolic 49–88; PULSE 79–111; RESP 13–100; TEMP 38.2–39.6; O2SAT 94–100; BMI 37.8
--- NOTE | 2025-01-04 17:17 | XR_ITS ---
Examination: CT cervical spine without contrast 2-D sagittal reconstructions 2-D coronal reconstructions 3-D reconstructions. Exam date and time:January 04, 2025 at 1742 hours INDICATIONS: Altered mental status today with neck pain CTDI:vol (mGy) 51 DLP: (mGycm) 1022 Technique: Multiple 2 mm axial sections of the cervical spine have been obtained. The coronal and sagittal reconstructions have been obtained. 3-D reconstructions have been obtained. Low dose protocols were performed. One or more of the following dose reduction techniques were used; automated exposure control, adjustment of the mA and/or KV according to patient size, use of iterative reconstruction technique. Findings: Axial sections demonstrate intact base of the skull. C1 exhibit satisfactory relationship to the odontoid. No acute cervical vertebral body fracture seen. Alignment posterior spinous processes satisfactory. Impression: No acute cervical fracture.
--- NOTE | 2025-01-04 17:22 | XR_ITS ---
Examination: CT brain head without contrast. 2-D sagittal coronal reconstructions Date and time of exam:January 04, 2025 1942 hours INDICATIONS: Altered mental status today CTDI: vol (mGy):10.9 DLP: (mGycm):232 Technique: Multiple CT axial sections of the brain have been obtained, 5 mm slice thickness. Contrast has not been administered. 2-D sagittal, coronal reconstructions have been obtained Low dose protocols were performed. One or more of the following dose reduction techniques were used; automated exposure control, adjustment of the mA and/or KV according to patient size, use of iterative reconstruction technique. Findings: No significant ventricular enlargement. Virchow space medial right temporal lobe Intra-axial or extra-axial hemorrhage density is not seen. No mass effect or midline shift Basal cisterns are not remarkable. Fourth ventricle is midline. Cranial vault intact. Impression: Negative for acute hemorrhage, mass effect or midline shift Advise clinical correlation and follow up accordingly
--- NOTE | 2025-01-04 17:24 | EDNOTE_ITS ---
Altered Mental Status RME/HPI General Chief Complaint: Altered Mental Status Stated Complaint: UNCONCIOUS Limitations: no limitations RME / HPI RME / HPI narrative: 39 year old female presents to the ED BIBA for evaluation of altered mental status. According to EMS, the patient was [place] unresponsive [place] bridge. Per her boyfriend, who was present at the scene, the patient had complained of not feeling well the day prior. On EMS arrival, the patient was noted to have pinpoint pupils and a respiratory rate of 6. She was administered three doses of intranasal Narcan totaling 6 mg, with minimal to no improvement in mental status. The patient was also noted to be hypotensive with a SBP in the 70s and felt warm to the touch. IV fluids were initiated by EMS. An attempt to place a NPA was unsuccessful due to intact gag reflex and poor tolerance. On arrival patient was altered, unable to provide any additional history. Rectal temperature 103F and sepsis alert was called overhead at 17:08 hours. At 1736 patient is awake, answering questions. Reports subjective fevers beginning yesterday and took Motrin today. Denies drug or alcohol use. Related Data Home Medications ?Medication ?Instructions ?Recorded ?Confirmed prenat.vits,ivon,nsy-[id number]-sscqa 1 tab PO QDAY 12/17/20 12/17/20 Previous Rx's ?Medication ?Instructions ?Recorded ibuprofen 800 mg tablet 800 mg PO TID PRN pain #30 t abs 05/09/21 ibuprofen 800 mg tablet 800 mg PO TID PRN pain #30 t abs 01/09/22 cephalexin 500 mg capsule 500 mg PO BID #20 caps 01/26 ibuprofen 800 mg tablet 800 mg PO TID PRN pain #30 t abs 06/09/22 acetaminophen 500 mg tablet 500 mg PO Q6H PRN pain #60 tabs 01/01/24 (Tylenol Extra Strength) ibuprofen 600 mg tablet 600 mg PO Q6H PRN pain #30 t abs 01/01/24 acetaminophen 500 mg capsule 1,000 mg (2 x 500 mg) PO Q6H PRN 01/05/24 fever or pain #30 caps amoxicillin 500 mg capsule 500 mg PO TID #30 caps 12/15 10/09 ibuprofen 800 mg tablet 800 mg PO TID PRN pain #30 t abs 01/05/24 ondansetron 4 mg disintegrating 4 mg PO Q8H PRN nausea and 01/13/24 tablet vomiting #20 tabs ibuprofen 800 mg tablet 800 mg PO TID PRN pain #30 t abs 04/14/24 ibuprofen 800 mg tablet 800 mg PO TID PRN pain #30 t abs 07/13/24 cefuroxime axetil 500 mg tablet 500 mg PO BID #14 tabs 12/15/24 ibuprofen 800 mg tablet 800 mg PO Q8H PRN pain #30 t abs 12/15/24 Allergies Allergy/AdvReac Type Severity Reaction Status Date / Time No Known Allergies Allergy Verified 08/04/24 18:55 Review of Systems Review of Systems ROS Unobtainable: unobtainable due to mental status Past Medical History Past Medical History GASTROINTESTINAL: Positive Gastrointestinal Disorders, Gall Bladder Disease and Obesity MUSCULOSKELETAL: Positive Musculoskeletal Disorders and Arthritis OTHER HISTORY: Positive Falls Family History FAMILY HISTORY: Negative Family Psychiatric Problems, Family Respiratory Disorders, Family Cardiac Disorders, Family Gastrointestinal Problems, Family Cancer, Family Surgery or Family Anesthesia Reaction Surgical History SURGICAL: Positive Section Social History SMOKING STATUS: Current some day smoker SUBSTANCE USE: does not use ED Exam General Limitations: Present no limitations General appearance: Present obtunded, obese and other (Lying supine, eyes closed, not responsive to voice. ) Head Head exam: Present atraumatic Eye Eye exam: Present other (Pupils are 1mm and symmetric ) ENT ENT exam: Present normal exam, normal oropharynx and mucous membranes moist Neck Neck exam: Present normal inspection, full ROM and trachea midline Chest Chest inspection: Present normal inspection and symmetric chest wall rise Respiratory Respiratory exam: Present normal lung sounds bilaterally and other (slow respirations ) Cardiovascular Cardiovascular exam: Present regular rate, normal rhythm and normal heart sounds Abdominal Exam Abdominal exam: Present soft and normal bowel sounds Extremities Exam Extremities exam: Present normal inspection, full ROM and other (Radial pulses intact) Back Exam Back exam: Present normal inspection and full ROM Neurological Exam Neurological exam: Present other (Patient arrived lying supine not responsive to voice, eyes closed, does not follow movements to confrontation ) Psychiatric Psychiatric exam: Present normal affect and normal mood Skin Skin exam: Present warm, dry, intact and normal color Course Quality Measures Current suspected stage: sepsis Possible source: unknown Blood cultures ordered: completed in ED Antibiotic ordered: Yes Pertinent labs: 01/04/25 17:34 Lactic Acid 1.2 mMol/L (0.4-2.0) sepsis Orders Category Date Time Status Bedside Blood Glucose Q1HR Care 01/04/25 17:17 Active Bedside COVID-19 Antigen Test NOW Care 01/04/25 17:33 Active Bedside Influenza A&B Antigen Test NOW Care 01/04/25 17:35 Active Bindery Machine Operator NOW Care 01/04/25 17:18 Active Continuous Pulse Oximetry NOW Care 01/04/25 17:17 Active EKG (ED ONLY) *Do not use* NOW Care 01/04/25 17:18 Completed Insert IV NOW Care 01/04/25 17:18 Active NPO NOW Care 01/04/25 17:[address] cervical spine wo con Stat Exams 01/04/25 17:[address] head/brain wo con Stat Exams 01/04/25 17:22 Completed CXRP [XR chest 1V portable] Stat Exams 01/04/25 17:38 Ordered EKG (ED Only) Stat Exams 01/04/25 17:17 Ordered Acetaminophen Stat Lab 01/04/25 17:34 Received Alcohol, Blood Medical Stat Lab 01/04/25 17:34 Received Arterial Blood Gas Stat Lab 01/04/25 18:00 Received Blood Culture (Lab) Stat Lab 01/04/25 17:33 Ordered CBC Stat Lab 01/04/25 17:34 Completed Comprehensive Metabolic Panel Stat Lab 01/04/25 17:34 Received Creatine Kinase Stat Lab 01/04/25 17:34 Received Drug Screen,Urine Stat Lab 01/04/25 17:22 Ordered HCG Qualitative,Urine Stat Lab 01/04/25 17:22 Ordered Lactic Acid [Lactate (Lactic Acid)] Stat Lab 01/04/25 17:34 Completed Salicylate Stat Lab 01/04/25 17:34 Received Troponin I Stat Lab 01/04/25 17:34 Received Urinalysis Stat Lab 01/04/25 17:22 Ordered Acetaminophen Ivpb [Ofirmev Inj] Med 01/04/25 17:39 Active 1,000 mg in 100 ml IV Q6HR Piper/Tazo 3.375 gm Premix [Zosyn] Med 01/04/25 17:34 Discontinued 3.375 gm in 50 ml IV X1 Sodium Chloride 0.9% 1000 ml [Ns] 1,000 ml Med 01/04/25 17:17 Active IV Q10H Sodium Chloride 0.9% 1000 ml [Ns] 1,000 ml Med 01/04/25 17:17 Active IV X1 Oxygen Delivery NOW RT 01/04/25 17:18 Active Vital Signs Vital signs: Vital Signs Pulse Rate 96 01/04/25 17:12 Respiratory Rate 19 01/04/25 17:12 Blood Pressure 103/88 H 01/04/25 17:12 Pulse Oximetry (%) 100 01/04/25 17:12 Pulse ox is 100% on room air which is adequate. Altered Mental Status MDM Narrative MDM Narrative:: Yola Lopez am scribing for and in the presence of Dr. Cervantes. 1800: Patient signed out to Dr. Campa pending work-up and final disposition. Patient data External records reviewed:: [facility] previous records (I reviewed ED Visit on 12/15/2024, diagnosed with UTI ) and EMS form Clinical information provided by:: patient and EMS Social determinants that could affect healthcare access:: housing (homeless? ) Patient has the following chronic illnesses:: None reported on arrival How is presenting disease/condition affected by chronic disease/condition?: no chronic disease Evaluation data The following diagnostics were reviewed and interpreted by me:: EKG tracing(s) (EKG @ 17:24. Sinus rhythm, rate 94, KS 140ms, QRS 92ms, QT/Qtc 340/392ms, no STEMI. ) and other (specify) (Diagnostics ordered however pending during sign out ) Lab and/or radiology exams considered but not ordered:: None Interpretation Summary: Diagnostic results pending at sign out. Medications / Prescriptions Medications or Prescriptions considered but not ordered:: None Medication administrations:: Medication Administration History Sodium Chloride (Ns) 1,000 mls @ 999 mls/hr IV X1 ONE Stop: 01/04/25 18:17 Sodium Chloride (Ns) 1,000 mls @ 100 mls/hr IV Q10H ONE Stop: 01/05/25 03:16 Acetaminophen (Ofirmev Inj) 1,000 mg in 100 mls @ 250 mls/hr IV Q6HR NEREYDA Stop: 01/05/25 12:23 Discontinued Medications Piperacillin/Tazobactam/Dextrose (Zosyn) 3.375 gm in 50 mls @ 100 mls/hr IV X1 ONE Stop: 01/04/25 18:03 See above Consultations Consultation(s) initiated? (list below): No Diagnosis Most likely diagnosis given after review of the tests above:: Syncope Heat exhaustion Fever Admission Indicated Admission indicated?: not indicated Explain why admission is indicated or not indicated:: Signed out to Dr. Campa pending labs. Admission Request Was there a request for admission?: No Disposition Plan Disposition Plan: other (specify) (Signed out to Dr. Campa pending work-up. ) Critical Care Time Critical Care Time Critical Care Time: Yes Total Critical Care Time (min.): 35 Attestation: The high probability of sudden, clinically significant deterioration in the patient's condition required the highest level of my preparedness to intervene urgently. The services I provided to this patient were to treat and/or prevent clinically significant deterioration. Services included the following: chart data review, reviewing nursing notes and/or old charts, documentation time, bilingual sales consultant collaboration regarding findings and treatment options, medication orders and management, direct patient care, vital sign assessments and ordering, interpreting and reviewing diagnostic studies and lab tests. Aggregate critical care time includes only time during which I was engaged in work directly related to the patient's care, as described above, whether at bedside or elsewhere in the Emergency Department. It did not include time spent performing other reported procedures or the services of residents, students, nurses or physician assistants. Discharge Plan Prescriptions/Referrals Prescriptions/Med Rec: No Action ibuprofen 800 mg tablet 800 mg PO TID PRN (Reason: pain) Qty: 30 0RF Vitamin Tablet 1 tab PO QDAY ibuprofen 800 mg tablet 800 mg PO TID PRN (Reason: pain) Qty: 30 0RF cephalexin 500 mg capsule 500 mg PO BID Qty: 20 0RF ibuprofen 800 mg tablet 800 mg PO TID PRN (Reason: pain) Qty: 30 0RF ibuprofen 600 mg tablet 600 mg PO Q6H PRN (Reason: pain) Qty: 30 0RF acetaminophen [Tylenol Extra Strength] 500 mg tablet 500 mg PO Q6H PRN (Reason: pain) Qty: 60 0RF amoxicillin 500 mg capsule 500 mg PO TID Qty: 30 0RF ibuprofen 800 mg tablet 800 mg PO TID PRN (Reason: pain) Qty: 30 0RF acetaminophen 500 mg capsule 1,000 mg PO Q6H PRN (Reason: fever or pain) Qty: 30 0RF ondansetron 4 mg tablet,disintegrating 4 mg PO Q8H PRN (Reason: nausea and vomiting) Qty: 20 0RF ibuprofen 800 mg tablet 800 mg PO TID PRN (Reason: pain) Qty: 30 0RF ibuprofen 800 mg tablet 800 mg PO TID PRN (Reason: pain) Qty: 30 0RF cefuroxime axetil 500 mg tablet 500 mg PO BID Qty: 14 0RF ibuprofen 800 mg tablet 800 mg PO Q8H PRN (Reason: pain) Qty: 30 0RF Referrals: Justo Wynn MD [Primary Care Provider] - In 1 week Patient/Caregiver Discharge Instructions Print Language: Occitan
--- NOTE | 2025-01-04 17:40 | PC.NURSE ---
Pt was responsiver to painful stimuli only upon arrival via EMS with Nasal trumpet in place. Pt woke up shortly after arrival whila ness and rectal temp probe was being inserted. Pt is now A&Ox3. Interacting with staff ad-gogo
[2025-01-04 17:44] LABS: Basophils # (Auto) 0.1 Thou/mm3 (0.0-0.2); Basophils % (Auto) 0 % (0-2.5); Eosinophils % (Auto) 0 % (0-10); Hematocrit 30.6 % (36.0-46.0); Hemoglobin 9.9 g/dL (12.0-16.0); Immature Granulocytes % (Auto) 0 % (0-0); Immature Granulocytes Auto 0.05 Thou/mm3 (0.00-0.00); Lymphocytes # (Auto) 1.2 Thou/mm3 (1.0-4.8); Lymphocytes % (Auto) 9 % (10-50); Mean Corpuscular HGB Conc 32.4 g/dl (31.0-37.0); Mean Corpuscular Hemoglobin 22.9 pg (25.0-35.0); Mean Corpuscular Volume 71 fL (80-100); Monocytes # (Auto) 0.3 Thou/mm3 (0.0-0.8); Monocytes % (Auto) 2 % (0-12); Neutrophils # (Auto) 12.1 Thou/mm3 (1.8-7.7); Neutrophils % (Auto) 88 % (37-80); Nucleated Red Blood Cell % 0 /100 WBC (0); Platelet Count 255 Thou/mm3 (140-440); RDW Standard Deviation 44.3 fL (36.4-46.3); Red Blood Count 4.33 Miln/mm3 (4.00-5.20); White Blood Count 13.8 Thou/mm3 (3.6-11.0)
[2025-01-04 17:47] LABS: Lactate (Lactic Acid) 1.2 mMol/L (0.4-2.0)
[2025-01-04 18:04] LABS: Base Excess -1 (-3-3); HCO3 22 mEq/L (20-26); Inspired Oxygen, FIO2 21 %; O2 Saturation 97 % (91-98); PCO2 31 mmHg (32.0-48.0); PO2 74 mmHg (83-108); pH, Arterial 7.47 (7.35-7.45)
--- NOTE | 2025-01-04 18:11 | PD.EDADDENDU ---
Emergency Room Addendum Addendum Narrative: 1800: Care assumed from Dr. Cervantes, the previous shift emergency physician. Past medical, surgical, social and family history reviewed. Vitals and home medications reviewed. Results and treatment plan discussed. I will assume the care of the patient at this time and will follow the patient, pending CTs, CXR, and labs. Please refer to the emergency department record for history and examination from initial visit. At 1708, sepsis alert was called overhead by the previous physician. NS IVF and Zosyn were ordered and are pending. WBC 13.8, ABG shows pH of 7.47, pCO2 31, and normal HCO3, Potassium 3.0, Glucose 114, Lactic Acid is normal, Troponin is normal, Salicylates are negative, Acetaminophen is negative, Blood Alcohol is negative, UA is positive for a UTI, UDS is positive for methamphetamines, Bedside COVID and Influenza are negative, according to my interpretation. 1931: NS IVF started. 2002: Discussed results with the patient. She is willing to be admitted to the hospital for further treatment. 2022: Discussed case with the resident physician, attending Dr. Walker from Hospitalist service regarding admission. Discussed patients ED course, exam findings, labs, and radiology results. The Hospitalist agrees to accept the patient for admission. Diagnoses: sepsis, community-acquired pneumonia RADIOLOGY RESULTS: [facility] Signed Patient: KATHRIN BOWSER. Record#: [id number] Birthdate: 1985 Age/Sex: 39 / F Location: [facility] Attending Dr: Ordering Physician: Chito Cervantes MD Date of Service: 01/04/25 Procedure(s): CT head/brain wo con Accession Number(s): [id number] cc: Chito Cervantes MD; Justo Wynn MD; Jayden Gordon MD~ Examination: CT brain head without contrast. 2-D sagittal coronal reconstructions Date and time of exam:January 04, 2025 1942 hours INDICATIONS: Altered mental status today CTDI: vol (mGy):10.9 DLP: (mGycm):232 Technique: Multiple CT axial sections of the brain have been obtained, 5 mm slice thickness. Contrast has not been administered. 2-D sagittal, coronal reconstructions have been obtained Low dose protocols were performed. One or more of the following dose reduction techniques were used; automated exposure control, adjustment of the mA and/or KV according to patient size, use of iterative reconstruction technique. Findings: No significant ventricular enlargement. Virchow space medial right temporal lobe Intra-axial or extra-axial hemorrhage density is not seen. No mass effect or midline shift Basal cisterns are not remarkable. Fourth ventricle is midline. Cranial vault intact. Impression: Negative for acute hemorrhage, mass effect or midline shift Advise clinical correlation and follow up accordingly Dictated By: Jayden Gordon MD Signed By: <Electronically signed by Jayden Gordon MD in OV> 01/04/25 1759 [facility] Signed Patient: KATHRIN BOWSER Record#: [id number] Birthdate: 1985 Age/Sex: 39 / F Location: [facility] Attending Dr: Ordering Physician: Chito Cervantes MD Date of Service: 01/04/25 Procedure(s): CT cervical spine wo con Accession Number(s): [id number] cc: Chito Cervantes MD; Justo Wynn MD; Jayden Gordon MD~ Examination: CT cervical spine without contrast 2-D sagittal reconstructions 2-D coronal reconstructions 3-D reconstructions. Exam date and time:January 04, 2025 at 1742 hours INDICATIONS: Altered mental status today with neck pain CTDI:vol (mGy) 51 DLP: (mGycm) 1022 Technique: Multiple 2 mm axial sections of the cervical spine have been obtained. The coronal and sagittal reconstructions have been obtained. 3-D reconstructions have been obtained. Low dose protocols were performed. One or more of the following dose reduction techniques were used; automated exposure control, adjustment of the mA and/or KV according to patient size, use of iterative reconstruction technique. Findings: Axial sections demonstrate intact base of the skull. C1 exhibit satisfactory relationship to the odontoid. No acute cervical vertebral body fracture seen. Alignment posterior spinous processes satisfactory. Impression: No acute cervical fracture. Dictated By: Jayden Gordon MD Signed By: <Electronically signed by Jayden Gordon MD in OV> 01/04/25 1800 [facility] Signed Patient: KATHRIN BOWSER. Record#: [id number] Birthdate: 1985 Age/Sex: 39 / F Location: [facility] Attending Dr: Ordering Physician: Anh Campa MD Date of Service: 01/04/25 Procedure(s): XR chest 1V SEPSIS PROTOCOL Accession Number(s): [id number] cc: Justo Wynn MD; Jayden Gordon MD; Anh Campa MD~ Examination: AP chest single view TECHNIQUE: Portable AP sitting chest single view Date and time: January 04, 2025 1908 hours INDICATIONS: Chest pain today. FINDINGS: Normal heart size Minimal obscuration detail left hemidiaphragm Right lung clear IMPRESSION: Suspicious for early left base pneumonia Dictated By: Jayden Gordon MD Signed By: <Electronically signed by Jayden Gordon MD in OV> 01/04/25 1950 Critical Care Time: 45 minutes The high probability of sudden, clinically significant deterioration in the patient?s condition required the highest level of my preparedness to intervene urgently. The services I provided to this patient were to treat and/or prevent clinically significant deterioration. Services included the following: chart data review, reviewing nursing notes and/or old charts, documentation time, middleware consultant collaboration regarding findings and treatment options, medication orders and management, direct patient care, vital sign assessments and ordering, interpreting and reviewing diagnostic studies and lab tests. Aggregate critical care time includes only time during which I was engaged in work directly related to the patient?s care, as described above, whether at bedside or elsewhere in the Emergency Department. It did not include time spent performing other reported procedures or the services of residents, students, nurses or physician assistants.
[2025-01-04 18:12] LABS: Allen Test Performed/OK; Puncture Site Right Radial
[2025-01-04 18:16] LABS: Acetaminophen < 2.0 mcg/mL (10.0-20.0); Alanine Aminotransferase 13 U/L (10-49); Albumin, Serum 3.6 gm/dL (3.5-5.0); Albumin/Globulin Ratio 1.4 (1.2-2.2); Alcohol, Blood Medical < 3.0 mg/dL (0-10.0); Alkaline Phosphatase 64 U/L (46-116); Anion Gap 10 (7-16); Aspartate Amino Transferase 22 U/L (0-34); BUN/Creatinine Ratio 5 Ratio (12-20); Bilirubin,Total 0.9 mg/dL (0.3-1.2); Blood Urea Nitrogen 5 mg/dL (9-23); Calcium 7.8 mg/dL (8.3-10.6); Calcium (Corrected) 8.1 mg/dL (8.5-10.1); Chloride 103 mMol/L (98-107); Creatine Kinase 52 U/L (34-171); Estimated Creatinine Clearance 87.6 mL/min (>60); Globulin 2.5 gm/dL (2.3-3.5); Glucose 114 mg/dL (74-106); Osmolality,Calculated 270 (275-295); Salicylate < 3.0 mg/dL; Sodium 136 mMol/L (136-145); Total Protein 6.1 gm/dL (5.7-8.2); Troponin I < 0.020 ng/mL (0.0-0.045); eGFR > 60 See Note
--- NOTE | 2025-01-04 18:24 | XR_ITS ---
Examination: AP chest single view TECHNIQUE: Portable AP sitting chest single view Date and time: January 04, 2025 1908 hours INDICATIONS: Chest pain today. FINDINGS: Normal heart size Minimal obscuration detail left hemidiaphragm Right lung clear IMPRESSION: Suspicious for early left base pneumonia
[2025-01-04] MEDS: ACETAMINOPHEN IVPB 1,000 MG/100 ML VIAL 250 MG IV ×2 (18:28→23:54)
[2025-01-04] MEDS: SODIUM CHLORIDE 0.9% 1000 ML 1,000 ML 999 ML IV (18:32)
[2025-01-04] MEDS: PIPER/TAZO 3.375 GM PREMIX 3.375 GM/50 ML BAG IV (18:47)
[2025-01-04 18:48] LABS: Collection Type, Urine Catheter
[2025-01-04 18:58] LABS: HCG Qualitative,Urine Negative
[2025-01-04 19:01] LABS: Bacteria,Urine Rare; Bilirubin,Urine Negative (Negative); Blood,Urine 1+ (Negative); Clarity,Urine Turbid (Clear/Hazy); Color,Urine Yellow (Lt Yel-Yel); Glucose, Urine Trace (Negative); Hyaline Casts,Urine < 1 /hpf (0-1); Ketones,Urine Negative (Negative); Leukocyte Esterase,Urine Positive (Negative); Nitrite,Urine Negative (Negative); Protein,Urine 2+ (Neg - Trace); RBC,Urine 55 /hpf (0-3); Specific Gravity,Urine 1.014 (1.001-1.035); Squamous Epithelial Cell,Urine 1 /hpf (0-5); WBC,Urine 56 /hpf (0-5)
[2025-01-04 19:08] LABS: Transitional Epi Cells,Urine 3 /hpf (0-5)
--- NOTE | 2025-01-04 19:10 | PC.NURSE ---
ASSUMED CARE OF PATIENT, PT STATES THAT SHE DOES NOT REMEMBER ANYTHING PRIOR TO THE ARRIVAL TO THE ER. SHE STATES THAT THE LAST THING SHE REMEMBERS IS BEING REALLY HOT AND THEN WAKING UP IN THE ER. PT ALERT AND ORIENTED AND IN NO ACUTE DISTRESS, BOYFRIEND AT BEDSIDE. PT HAS NO COMPLAINTS AT THIS TIME, WILL CONTINUE WITH PLAN OF CARE
[2025-01-04] MEDS: SODIUM CHLORIDE 0.9% 1000 ML 1,000 ML 100 ML IV (19:25)
[2025-01-04] MEDS: POTASSIUM CHLORIDE 20 mEq TABCR 40 MEQ PO (19:58)
[2025-01-04 20:29] LABS: Amphetamine/Methamp Scrn,U Positive (Negative); Barbiturate Screen,Urine Negative (Negative); Benzodiazepines Screen,Urine Negative (Negative); Benzoylecgonine Screen, Ur Negative (Negative); Fentanyl Screen,Urine Negative (Negative); Opiate Screen,Urine Negative (Negative); THC Screen,Urine Negative (Negative)
[2025-01-04 22:57] LABS: Creatine Kinase 56 U/L (34-171)
[2025-01-04] MEDS: VANCOMYCIN/NS 1 GM IVPB 200 ML IV (23:24)
--- NOTE | 2025-01-04 23:24 | ESHP_ITS ---
<Statement entered by Fernando Walker MD - 01/05/25 12:44> I have discussed and was present for the essential components of the history, physical examination, diagnosis, and treatment plan with the resident. I agree with the patient's care as documented by the resident and amended herein by me. Fernando Walker MD FACP. Documentation for date of: 01/04/25 HPI History of Present Illness Chief complaint: headache History of present illness: Melissa Diaz is 39 yr female with hx of methamphetamine BIBA after found unresponsive [place] a bridge. Patient is poor historian and history was obtained from chart review and ED note. Per her boyfriend, who was present at the scene, the patient had complained of not feeling well the day prior. On EMS arrival, the patient was noted to have pinpoint pupils and a respiratory rate of 6. She was administered three doses of intranasal Narcan totaling 6 mg, with minimal to no improvement in mental status. The patient was also noted to be hypotensive with a SBP in the 70s and felt warm to the touch. IV fluids were initiated by EMS. Patient is alert and oriented x 3, complaining of severe headache 8 out of 10. States that she feels feverish. Last thing patient can recall is sitting on the couch at home. She denies abdominal pain, vomiting, dysuria, recent sick contacts. In the ED, BP 103/88, HR 96, RR 19, fever 103.1. Leukocytosis 13.8, hemoglobin stable at 10, sodium 136, potassium 3.0, creatinine 1.0, normal lactic acid 1.2. UA positive for UTI, chest x-ray significant for early left base pneumonia. U tox positive for methamphetamine use. CT spine negative, CT head negative. Patient was given Tylenol, 2 L bolus NS, Zosyn, 40 meQ in the ED. Patient to be admitted for management of acute encephalopathy. PMH: As noted above PSH: Denies FamHx: unknown Social: Homeless, stays with boyfriend. Smokes 1 pack/day for long time . Heavy alcohol use (unable to quantify) since 20s. Denied drug use but utox is positive. Meds: none Allergies: NKDA Review of Systems Review of Systems Systems Reviewed: All systems reviewed, normal except as documented Exam Vital Signs Temp Pulse Resp BP Pulse Ox O2 Del Method 100.8 F H 79 24 H 95/55 L 100 Room Air 01/04/25 20:39 01/04/25 23:16 01/04/25 23:16 01/04/25 23:16 01/04/25 23:16 01/04/25 23:16 Narrative Exam General: Young female, somnolent, unkempt, No acute distress HEENT: NCAT, No JVD noted. Mucosa dry. Pupils are equal and reactive to light bilaterally Cardiovascular: Normal S1 and S2. Regular rate and rhythm. Respiratory: Lungs are clear to auscultation bilaterally. No wheezing or crackles heard. Abdomen: Soft, nontender, not distended, normal bowel sounds. Skin: Warm to touch, dry, no rashes noted Musculoskeletal: No gross injuries. Able to move all 4 extremities. No pitting edema Neuro: Alert and oriented x3. No focal neuro deficits. GCS 14. Psych: Normal affect and mood Results: Labs 01/04/25 17:34 01/04/25 17:34 Labs: Short CBC 01/04/25 Range/Units 17:34 WBC 13.8 H (3.6-11.0) Thou/mm3 Hgb 9.9 L (12.0-16.0) g/dL Hct 30.6 L (36.0-46.0) % Plt Count 255 D (140-440) Thou/mm3 BMP 01/04/25 17:34 Sodium 136 Potassium 3.0 L Chloride 103 Carbon Dioxide 23.0 BUN 5 L Creatinine 1.0 Glucose 114 H Calcium 7.8 L Cardiac Enzymes 01/04/25 01/04/25 Range/Units 17:34 17:34 Total Creatine Kinase 52 56 (34-171) U/L Troponin I < 0.020 (0.0-0.045) ng/mL Liver Function 01/04/25 Range/Units 17:34 Total Bilirubin 0.9 (0.3-1.2) mg/dL AST 22 (0-34) U/L ALT 13 (10-49) U/L Alkaline Phosphatase 64 (46-116) U/L Albumin 3.6 (3.5-5.0) gm/dL Urine 01/04/25 Range/Units 18:32 Urine Color Yellow (Lt Yel-Yel) Urine Clarity Turbid A (Clear/Hazy) Urine pH 7.0 (5.0-7.0) Ur Specific Rush 1.014 (1.001-1.035) Urine Protein 2+ A (Neg - Trace) Urine Glucose (UA) Trace (Negative) ABG Interpretation ABG results: 01/04/25 18:00 ABG pH 7.47 H ABG pCO2 31 L ABG pO2 74 L ABG HCO3 22 ABG O2 Saturation 97 ABG Base Excess -1 Quality Measures Quality Measures sepsis Current suspected stage: ruled out Possible source: unknown Blood cultures ordered: completed in ED Antibiotic ordered: Yes Medications Home Medications and Allergies Home Medications ?Medication ?Instructions ?Recorded ?Confirmed ?Type prenat.vits,ivon,fkw-aimu-bacle 1 tab PO QDAY 12/17/20 12/17/20 History Allergies Allergy/AdvReac Type Severity Reaction Status Date / Time No Known Allergies Allergy Verified 08/04/24 18:55 Visit Medications Acetaminophen (Acetaminophen 325 Mg Tablet) 650 mg PO Q6H PRN PRN Reason: Fever >100.3 or pain Stop: 02/03/25 22:17 Enoxaparin Sodium (Enoxaparin Sod Inj 40 Mg/0.4 Ml Syringe) 40 mg SC QDAY NEREYDA Stop: 01/19/25 08:59 Sodium Chloride (Ns) 1,000 mls @ 100 mls/hr IV Q10H ONE Stop: 01/05/25 03:16 Last Admin: 01/04/25 19:25 Dose: 100 mls/hr Acetaminophen (Ofirmev Inj) 1,000 mg in 100 mls @ 250 mls/hr IV Q6HR NEREYDA Stop: 01/05/25 12:23 Last Infusion: 01/04/25 18:54 Dose: Infused Piperacillin/Tazobactam/Dextrose (Zosyn) 50 mls @ 100 mls/hr IV Q8HR NEREYDA Stop: 01/11/25 22:28 Piperacillin/Tazobactam/Dextrose (Zosyn) 3.375 gm in 50 mls @ 100 mls/hr IV X1 ONE Stop: 01/05/25 03:29 Vancomycin/Sodium Chloride (Vancomycin/Ns 1 Gm Ivpb) 200 mls @ 120 mls/hr IV Q100M NEREYDA Stop: 01/05/25 02:19 Ondansetron HCl (Ondansetron Inj 2 Mg/Ml Inj 2 Ml) 4 mg IVP Q6H PRN; Protocol PRN Reason: NAUSEA OR VOMITING Stop: 02/03/25 22:17 Pharmacy Consult (Vancomycin Pharmacy To Dose 1 Each Each) 1 each IV QDAY NEREYDA Stop: 02/04/25 08:59 Sennosides (Senna Tablet) 1 tab PO QDAY PRN; Protocol PRN Reason: constipation Stop: 02/03/25 22:17 Discontinued Medications Sodium Chloride (Ns) 1,000 mls @ 999 mls/hr IV X1 ONE Stop: 01/04/25 18:17 Last Infusion: 01/04/25 19:30 Dose: Infused Piperacillin/Tazobactam/Dextrose (Zosyn) 3.375 gm in 50 mls @ 100 mls/hr IV X1 ONE Stop: 01/04/25 18:03 Last Infusion: 01/04/25 19:20 Dose: Infused Potassium Chloride (Potassium Chloride 20 Meq Tabcr) 40 meq PO X1 ONE Stop: 01/04/25 19:45 Last Admin: 01/04/25 19:58 Dose: 40 meq Assessment & Plan Plan Melissa Diaz is 39 yr female with hx of methamphetamine BIBA after found unresponsive [place] a bridge. Patient is poor historian and history was obtained from chart review and ED note. Patient to be admitted for management of acute encephalopathy. # Acute encephalopathy Ddx: Infection possible UTI/early pneumonia, heat exposure, drug use, decreased hydration. Found unresponsive under the bridge, On EMS arrival, the patient was noted to have pinpoint pupils and a respiratory rate of 6. She was administered three doses of intranasal Narcan totaling 6 mg, with minimal to no improvement in mental status. Now complains of severe headache 03/25. CT spine negative, CT head negative. BP 103/88, fever 103.1, leukocytosis 13.8, normal lactic acid. Possible source of infection includes UTI versus early pneumonia. Patient was given Tylenol, 2 L bolus NS, Zosyn, 40 mEq potassium in the ED. -continue fluids - Acetaminophen 650 mg p.o. -Start vancomycin and IV zosyn broad coverage and descelate as needed pending blood cultures -urine culture pending -blood culture pending -cocci serology peniding #Methamaphetamine use disorder #Alcohol use disorder #Tobacco dependence -school social worker consult -dianetic counselor patient Health maintenance: Dispo: medsurg, IV abx for possible infection. Acute encephalopathy FEn: regular DVT prophylaxis: Lovenox CODE STATUS: Full code The patient's management plan was discussed with my attending physician Dr. Walker. Kristel Love, PGY-1
[2025-01-05] VITALS (8 sets, daily range): BP systolic 97–125; BP diastolic 42–79; PULSE 66–99; RESP 17–96; TEMP 36.7–38; O2SAT 94–99; BMI 34.7
--- NOTE | 2025-01-05 00:34 | PC.NURSE ---
REPORT GIVEN TO FLOOR NURSE JOSE DE JESUS
[2025-01-05] MEDS: VANCOMYCIN/NS 1 GM IVPB 200 ML IV (01:24)
[2025-01-05] MEDS: ACETAMINOPHEN IVPB 1,000 MG/100 ML VIAL 250 MG IV ×2 (05:10→11:30)
[2025-01-05] MEDS: PIPER/TAZO 3.375 GM PREMIX 3.375 GM/50 ML BAG IV (05:40)
[2025-01-05 05:54] LABS: Basophils % (Auto) 0 % (0-2.5); Eosinophils % (Auto) 0 % (0-10); Hematocrit 33.2 % (36.0-46.0); Hemoglobin 10.3 g/dL (12.0-16.0); Immature Granulocytes % (Auto) 1 % (0-0); Immature Granulocytes Auto 0.08 Thou/mm3 (0.00-0.00); Lymphocytes # (Auto) 0.7 Thou/mm3 (1.0-4.8); Lymphocytes % (Auto) 5 % (10-50); Mean Corpuscular Hemoglobin 22.8 pg (25.0-35.0); Mean Corpuscular Volume 74 fL (80-100); Monocytes # (Auto) 0.6 Thou/mm3 (0.0-0.8); Monocytes % (Auto) 4 % (0-12); Neutrophils # (Auto) 11.9 Thou/mm3 (1.8-7.7); Neutrophils % (Auto) 90 % (37-80); Nucleated Red Blood Cell % 0 /100 WBC (0); Platelet Count 226 Thou/mm3 (140-440); RDW Standard Deviation 46.8 fL (36.4-46.3); Red Blood Count 4.51 Miln/mm3 (4.00-5.20); White Blood Count 13.3 Thou/mm3 (3.6-11.0)
[2025-01-05 06:44] LABS: Alanine Aminotransferase 26 U/L (10-49); Albumin, Serum 3.5 gm/dL (3.5-5.0); Albumin/Globulin Ratio 1.4 (1.2-2.2); Alkaline Phosphatase 79 U/L (46-116); Anion Gap 9 (7-16); Aspartate Amino Transferase 45 U/L (0-34); BUN/Creatinine Ratio 7 Ratio (12-20); Bilirubin,Total 0.6 mg/dL (0.3-1.2); Blood Urea Nitrogen 6 mg/dL (9-23); Calcium 7.5 mg/dL (8.3-10.6); Calcium (Corrected) 7.9 mg/dL (8.5-10.1); Carbon Dioxide 20.7 mMol/L (20.0-31.0); Chloride 108 mMol/L (98-107); Creatinine (Component) 0.9 mg/dL (0.6-1.3); Estimated Creatinine Clearance 92.9 mL/min (>60); Globulin 2.5 gm/dL (2.3-3.5); Glucose 155 mg/dL (74-106); Magnesium 1.6 mg/dL (1.6-2.6); Osmolality,Calculated 276 (275-295); Phosphorous 1.9 mg/dL (2.4-5.1); Potassium 3.7 mMol/L (3.4-5.1); Sodium 138 mMol/L (136-145); eGFR > 60 See Note
--- NOTE | 2025-01-05 09:17 | PC.SS ---
Follow up note: Pt is on IV antibiotic. Pt is positive for meth upon arrival. Pt is homeless.
[2025-01-05] MEDS: ENOXAPARIN SOD INJ 40 MG/0.4 ML SYRINGE SC (09:26)
[2025-01-05] MEDS: Magnesium Sulfate 2 GM Ivpb 2 GM/50 ML BAG IV (09:27)
[2025-01-05] MEDS: NAPH,KPH MBDB 1 PACKET (1.5 GM) PO ×2 (09:27→20:55)
[2025-01-05] MEDS: VANCOMYCIN/NS 750 MG IVPB 750 MG/150 ML BAG 120 MG IV (09:30)
[2025-01-05] MEDS: AZITHROMYCIN INJ 500 MG in SODIUM CHLORIDE 0.9% 250 ML 250 ML 250 MG IV (11:37)
[2025-01-05] MEDS: cefTRIAXone/D5w 1gm IV premix 1 GM/50 ML BAG IV (12:14)
--- NOTE | 2025-01-05 12:33 | PC.SS ---
SS met with patient regarding her d/c plan. Pt is alert/oriented. Pt was admitted for Heat Stroke. Pt confirmed demographic and contact information is correct on facesheet. Pt is homeless. Pt ambulates independently without assistance or DME. Pt is ok with all ADLs. Patient?s pharmacy of choice is [facility] on [address]. Pt named her significant other, Moustapha Montilla medical decision maker if she is unable. SS offered pt d/c options to homeless [facility] and pt refused. Pt [place] by [address] and [employer]. Patient's choice is to return to the community. Pt states her significant other can provide transportation. Pt states she has appropriate clothes (shirt, pants, and shoes). Patient's tox screen is positive for Meth. Pt states last time she is used meth was 4 days ago and has been using for long time. SS offered pt community resources and pt refused. Pt followed up with PCP 1 year ago. Pt is agreeable for SS to maker her follow up appointment with PCP. SS poke to Zee from [facility] who scheduled follow up appointment for January 10, 2025 at 145pm at [facility] on [address] D/C plan: Return community Next of Kin: Moustapha Montilla, significant other, phone# [phone] PCP: [facility] Address: Correct on facesheet
[2025-01-05 12:37] LABS: Cocci Serology, IgM Positive (Negative)
[2025-01-05 12:38] LABS: Cocid Sro, CF/ID (UCD) NO CHG* See Sep Rpt
[2025-01-05] MEDS: FLUCONAZOLE 100 MG TABLET 400 MG PO (13:30)
[2025-01-05] MEDS: KETOROLAC INJ 30 MG/ML VIAL 15 MG IVP (15:45)
--- NOTE | 2025-01-05 15:55 | PD.RESPRO ---
Documentation for date of: 01/05/25 Subjective Subjective Interval history: Today patient was seen and examined at bedside. Her vitals are stable, patient reported significant improvement of her symptoms. She was oriented x 3. She reported that she has mild dry cough for the past 24 hours. Patient denied any neurological symptoms. Is still pending culture and sensitivity for the patient. Because the patient shows signs and symptoms of pneumonia we will de-escalate the patient to ceftriaxone in addition to the azithromycin for community-acquired pneumonia and started vancomycin and Zosyn. Her cocci came back positive for that reason we will start the patient on fluconazole 400 mg p.o. daily. Regarding her living status patient reported that she is living with her boyfriend, she was also tested positive for methamphetamine. Spoke with the social media designer for possible social intervention and provide the patient with resources however social media designer reported that the patient denied to take any resources regarding drug abuse. Exam Vital Signs Temp Pulse Resp BP Pulse Ox O2 Del Method 99.7 F 81 18 112/65 99 Room Air 01/05/25 12:00 01/05/25 12:00 01/05/25 12:00 01/05/25 12:00 01/05/25 12:00 01/05/25 12:00 Narrative Exam GEN: AOx3, able to speak full sentences HEENT: NC/AC, PERRLA, oral mucosa moist, neck supple CVS: RRR, S1-S2 present, no murmurs appreciated RESP: CTAB GI: soft,non distended, non tender, NBS MSK: able to move all 4 limbs, no lower extremity edema SKIN: warm and dry FACILITY SERVICE ASSOCIATE: CN II-XII and Sensation grossly intact. Objective Labs 01/05/25 05:00 01/05/25 05:00 Labs: Laboratory Results - last 24 hr 01/04/25 01/04/25 01/04/25 17:34 17:34 18:00 WBC 13.8 H RBC 4.33 Hgb 9.9 L Hct 30.6 L MCV 71 L MCH 22.9 L MCHC 32.4 RDW Std Deviation 44.3 Plt Count 255 D Neut % (Auto) 88 H Lymph % (Auto) 9 L Marathon % (Auto) 2 Eos % (Auto) 0 Baso % (Auto) 0 Neut # (Auto) 12.1 H Lymph # (Auto) 1.2 Marathon # (Auto) 0.3 Eos # (Auto) 0.0 Baso # (Auto) 0.1 Immature Gran # (Auto) 0.05 H Absolute Nucleated RBC 0.00 Immature Gran % 0 Nucleated RBC % 0 Puncture Site Right Radial ABG pH 7.47 H ABG pCO2 31 L ABG pO2 74 L ABG HCO3 22 ABG O2 Saturation 97 ABG Base Excess -1 FiO2 21 Sodium 136 Potassium 3.0 L Chloride 103 Carbon Dioxide 23.0 Anion Gap 10 BUN 5 L Creatinine 1.0 Estim Creat Clear Calc 87.6 eGFR > 60 BUN/Creatinine Ratio 5 L Glucose 114 H Calculated Osmolality 270 L Lactic Acid 1.2 Calcium 7.8 L Corrected Calcium 8.1 L Phosphorus Magnesium Total Bilirubin 0.9 AST 22 ALT 13 Alkaline Phosphatase 64 Total Creatine Kinase 52 56 Troponin I < 0.020 Total Protein 6.1 Albumin 3.6 Globulin 2.5 Albumin/Globulin Ratio 1.4 Procalcitonin 0.40 Ur Collection Type Urine Color Urine Clarity Urine pH Ur Specific Banner Urine Protein Urine Glucose (UA) Urine Ketones Urine Blood Urine Nitrite Urine Bilirubin Urine Urobilinogen (Auto) Ur Leukocyte Esterase Urine RBC Urine WBC Ur Squamous Epith Cells Ur Transition Epith Cell Urine Bacteria Hyaline Casts Urine HCG, Qual Salicylates < 3.0 Urine Opiates Screen Urine Fentanyl Screen Acetaminophen < 2.0 L Ur Barbiturates Screen U Amphetamin/Meth Scrn U Benzodiazepines Scrn U Cocaine Metab Screen U Marijuana (THC) Screen Ethyl Alcohol < 3.0 Coccidioides IgM Ab 01/04/25 01/05/25 01/05/25 18:32 05:00 07:10 WBC 13.3 H RBC 4.51 Hgb 10.3 L Hct 33.2 L MCV 74 L MCH 22.8 L MCHC 31.0 RDW Std Deviation 46.8 H Plt Count 226 Neut % (Auto) 90 H Lymph % (Auto) 5 L Marathon % (Auto) 4 Eos % (Auto) 0 Baso % (Auto) 0 Neut # (Auto) 11.9 H Lymph # (Auto) 0.7 L Marathon # (Auto) 0.6 Eos # (Auto) 0.0 Baso # (Auto) 0.0 Immature Gran # (Auto) 0.08 H Absolute Nucleated RBC 0.00 Immature Gran % 1 H Nucleated RBC % 0 Puncture Site ABG pH ABG pCO2 ABG pO2 ABG HCO3 ABG O2 Saturation ABG Base Excess FiO2 Sodium 138 Potassium 3.7 D Chloride 108 H Carbon Dioxide 20.7 Anion Gap 9 BUN 6 L Creatinine 0.9 Estim Creat Clear Calc 92.9 eGFR > 60 BUN/Creatinine Ratio 7 L Glucose 155 H Calculated Osmolality 276 Lactic Acid Calcium 7.5 L Corrected Calcium 7.9 L Phosphorus 1.9 L Magnesium 1.6 Total Bilirubin 0.6 AST 45 H ALT 26 Alkaline Phosphatase 79 D Total Creatine Kinase Troponin I Total Protein 6.0 Albumin 3.5 Globulin 2.5 Albumin/Globulin Ratio 1.4 Procalcitonin Ur Collection Type Catheter Urine Color Yellow Urine Clarity Turbid A Urine pH 7.0 Ur Specific Banner 1.014 Urine Protein 2+ A Urine Glucose (UA) Trace Urine Ketones Negative Urine Blood 1+ A Urine Nitrite Negative Urine Bilirubin Negative Urine Urobilinogen (Auto) 3.0 Ur Leukocyte Esterase Positive Urine RBC 55 H Urine WBC 56 H Ur Squamous Epith Cells 1 Ur Transition Epith Cell 3 Urine Bacteria Rare Hyaline Casts < 1 Urine HCG, Qual Negative Salicylates Urine Opiates Screen Negative Urine Fentanyl Screen Negative Acetaminophen Ur Barbiturates Screen Negative U Amphetamin/Meth Scrn Positive A U Benzodiazepines Scrn Negative U Cocaine Metab Screen Negative U Marijuana (THC) Screen Negative Ethyl Alcohol Coccidioides IgM Ab Positive A ABG Interpretation ABG results: 01/04/25 18:00 ABG pH 7.47 H ABG pCO2 31 L ABG pO2 74 L ABG HCO3 22 ABG O2 Saturation 97 ABG Base Excess -1 Quality Measures Quality Measures sepsis Current suspected stage: sepsis Possible source: unknown Blood cultures ordered: completed in ED Antibiotic ordered: Yes Assessment & Plan Assessment Current Active Medications: Generic Name Dose Route Start Last Admin Trade Name Freq PRN Reason Stop Dose Admin Acetaminophen 650 mg 01/04/25 22:18 Acetaminophen 325 Mg Tablet PO 02/03/25 22:17 Q6H PRN Fever >100.3 or pain Enoxaparin Sodium 40 mg 01/05/25 09:00 01/05/25 09:26 Enoxaparin Sod Inj 40 Mg/0.4 Ml Syringe SC 01/19/25 08:59 40 mg QDAY NEREYDA Administration Fluconazole 400 mg 01/05/25 13:00 01/05/25 13:30 Fluconazole 100 Mg Tablet PO 01/12/25 12:59 400 mg QDAY NEREYDA Administration Azithromycin 500 mg/ Sodium 250 mls @ 250 mls/hr 01/05/25 10:41 01/05/25 11:37 Chloride IV 01/12/25 10:40 250 mls/hr QDAY NEREYDA Administration Ceftriaxone Sodium/Dextrose 1 gm in 50 mls @ 100 mls/hr 01/05/25 12:15 01/05/25 12:14 Rocephin/D5w 1gm Iv Premix IV 01/12/25 12:14 100 mls/hr QDAY NEREYDA Administration Ondansetron HCl 4 mg 01/04/25 22:18 Ondansetron Inj 2 Mg/Ml Inj 2 Ml IVP 02/03/25 22:17 Q6H PRN NAUSEA OR VOMITING Protocol Potassium Phos/Sodium Phos 1 packet 01/05/25 09:00 01/05/25 09:27 Naph,[facility]db 1 Packet (1.5 Gm) PO 01/06/25 08:59 1 packet BID NEREYDA Administration Sennosides 1 tab 01/04/25 22:18 Senna Tablet PO 02/03/25 22:17 QDAY PRN constipation Protocol Plan Summary:A 39-year-old female patient with past medical history of methamphetamine abuse, was brought after she was found obtunded by EMS. Patient was admitted for heatstroke versus sepsis secondary to pneumonia versus UTI. # Acute encephalopathy Ddx: Infection possible UTI/early pneumonia, heat exposure, drug use, decreased hydration. [place] bridge, On EMS arrival, the patient was noted to have pinpoint pupils and a respiratory rate of 6. She was administered three doses of intranasal Narcan totaling 6 mg, with minimal to no response improvement in mental status. CT spine negative, CT head negative. BP 103/88, fever 103.1, leukocytosis 13.8, normal lactic acid. Possible source of infection includes UTI versus early pneumonia. Plan - continue fluids - Acetaminophen 650 mg p.o. - Will de-escalate the patient to Rocephin and azithromycin - urine culture pending - blood culture pending - cocci serology peniding #pneumonia likely with gram-negative bacteria versus coccidiomycosis #Coccidiomycosis, pulmonary Patient was found obtunded, has SIRS response with elevated body temperature, heart rate of 93, chest x-ray showed infiltrate, WBC elevated of 30.3 Cocci serology came back positive Today patient reported that she has history of 1 day of dry cough. Plan ? Start the patient on ceftriaxone and azithromycin as a de-escalation from Zosyn and vancomycin ? Follow-up in the blood culture and urine culture ? Start the patient on fluconazole 400 mg p.o. daily ? Follow-up on the confirmatory test for the cocci ? Oxygen as needed #UTI Plan ? Patient on Rocephin #Methamaphetamine use disorder #Alcohol use disorder #Tobacco dependence -director of social media marketing consult -disability counselor patient Health maintenance: Dispo: Pending urine culture and blood culture patient can be discharged home FEn: regular DVT prophylaxis: Lovenox CODE STATUS: Full code - Patient's plan and care discussed with my attending, Dr. Baljeet Chin MD Internal Medicine PGY-2 Attending Provider Attestation/Addendum I have discussed and was present for the essential components of the history, physical examination, diagnosis, and treatment plan with the resident. I agree with the patient's care as documented by the resident and amended herein by me. Robert Delong DO. Although this document has been carefully reviewed, there may still be some phonetic and other typographical errors. These errors are purely grammatical due to imperfections in the software program and should not be construed in any way to compromise the substance of the patient's medical care during this visit.
--- NOTE | 2025-01-05 16:29 | PC.SS ---
SS provided pt with [facility] which contains her follow up appointment with PCP January 10, 2025 at 1:45pm at [facility] on [facility]. Pt states she prefers the location on [facility].
[2025-01-06] VITALS (10 sets, daily range): BP systolic 98–146; BP diastolic 66–93; PULSE 79–105; RESP 16–97; TEMP 36.2–39.5; O2SAT 95–99
[2025-01-06] MEDS: ACETAMINOPHEN 325 MG TABLET 650 MG PO (03:28)
[2025-01-06 06:12] LABS: Basophils % (Auto) 1 % (0-2.5); Eosinophils % (Auto) 0 % (0-10); Hematocrit 28.3 % (36.0-46.0); Hemoglobin 9.1 g/dL (12.0-16.0); Immature Granulocytes % (Auto) 1 % (0-0); Immature Granulocytes Auto 0.03 Thou/mm3 (0.00-0.00); Lymphocytes # (Auto) 0.7 Thou/mm3 (1.0-4.8); Lymphocytes % (Auto) 11 % (10-50); Mean Corpuscular HGB Conc 32.2 g/dl (31.0-37.0); Mean Corpuscular Hemoglobin 22.8 pg (25.0-35.0); Mean Corpuscular Volume 71 fL (80-100); Monocytes # (Auto) 0.4 Thou/mm3 (0.0-0.8); Monocytes % (Auto) 6 % (0-12); Neutrophils # (Auto) 5.1 Thou/mm3 (1.8-7.7); Neutrophils % (Auto) 81 % (37-80); Nucleated Red Blood Cell % 0 /100 WBC (0); Platelet Count 193 Thou/mm3 (140-440); RDW Standard Deviation 45.3 fL (36.4-46.3); Red Blood Count 3.99 Miln/mm3 (4.00-5.20); White Blood Count 6.3 Thou/mm3 (3.6-11.0)
[2025-01-06 06:19] LABS: Alanine Aminotransferase 35 U/L (10-49); Albumin, Serum 3.3 gm/dL (3.5-5.0); Albumin/Globulin Ratio 1.4 (1.2-2.2); Alkaline Phosphatase 83 U/L (46-116); Anion Gap 9 (7-16); Aspartate Amino Transferase 42 U/L (0-34); BUN/Creatinine Ratio 11 Ratio (12-20); Bilirubin,Total 0.4 mg/dL (0.3-1.2); Blood Urea Nitrogen 9 mg/dL (9-23); Calcium 7.6 mg/dL (8.3-10.6); Calcium (Corrected) 8.2 mg/dL (8.5-10.1); Chloride 104 mMol/L (98-107); Creatinine (Component) 0.8 mg/dL (0.6-1.3); Estimated Creatinine Clearance 104.6 mL/min (>60); Globulin 2.3 gm/dL (2.3-3.5); Glucose 134 mg/dL (74-106); Osmolality,Calculated 272 (275-295); Sodium 136 mMol/L (136-145); Total Protein 5.6 gm/dL (5.7-8.2); eGFR > 60 See Note
[2025-01-06] MEDS: FLUCONAZOLE 100 MG TABLET 400 MG PO (09:04)
[2025-01-06] MEDS: POTASSIUM CHLORIDE 10% 20 MEQ/15 ML UDC 40 MEQ GT (09:04)
[2025-01-06] MEDS: cefTRIAXone/D5w 1gm IV premix 1 GM/50 ML BAG IV (09:04)
[2025-01-06] MEDS: ENOXAPARIN SOD INJ 40 MG/0.4 ML SYRINGE SC (09:04)
[2025-01-06] MEDS: AZITHROMYCIN INJ 500 MG in SODIUM CHLORIDE 0.9% 250 ML 250 ML 250 MG IV (09:04)
[2025-01-06] MEDS: POTASSIUM CHL 10 mEq IVPB 10 MEQ/100 ML BAG 75 MEQ IV ×3 (09:04→12:14)
[2025-01-06 10:22] LABS: Vancomycin,Trough < 3.0 mcg/mL (5.0-10.0)
--- NOTE | 2025-01-06 11:57 | ESPR_ITS ---
Documentation for date of: 01/06/25 Subjective Subjective Interval history: Patient is seen and examined at bedside. Patient denied any new symptoms. On review of her chart noticed that she has a low-grade fever 100.3 overnight. For that reason we will keep the patient for 1 more day of observation and continue antibiotics and fluconazole. Anticipated discharge tomorrow. Exam Vital Signs Temp Pulse Resp BP Pulse Ox O2 Del Method 97.1 F 79 18 120/85 H 95 Room Air 01/06/25 08:00 01/06/25 08:00 01/06/25 08:00 01/06/25 08:00 01/06/25 08:00 01/06/25 08:00 Narrative Exam GEN: AOx3, able to speak full sentences HEENT: NC/AC, PERRLA, oral mucosa moist, neck supple CVS: RRR, S1-S2 present, no murmurs appreciated RESP: CTAB GI: soft,non distended, non tender, NBS MSK: able to move all 4 limbs, no lower extremity edema SKIN: warm and dry WHEAT GROWER: CN II-XII and Sensation grossly intact. Objective Labs 01/06/25 04:51 01/06/25 04:51 Labs: Laboratory Results - last 24 hr 01/05/25 01/06/25 01/06/25 07:10 04:51 08:20 WBC 6.3 D RBC 3.99 L Hgb 9.1 L Hct 28.3 L MCV 71 L MCH 22.8 L MCHC 32.2 RDW Std Deviation 45.3 Plt Count 193 D Neut % (Auto) 81 H Lymph % (Auto) 11 [place] % (Auto) 6 Eos % (Auto) 0 Baso % (Auto) 1 Neut # (Auto) 5.1 Lymph # (Auto) 0.7 L [place] # (Auto) 0.4 Eos # (Auto) 0.0 Baso # (Auto) 0.0 Immature Gran # (Auto) 0.03 H Absolute Nucleated RBC 0.00 Immature Gran % 1 H Nucleated RBC % 0 Sodium 136 Potassium 3.0 L D Chloride 104 Carbon Dioxide 23.0 Anion Gap 9 BUN 9 Creatinine 0.8 Estim Creat Clear Calc 104.6 eGFR > 60 BUN/Creatinine Ratio 11 L Glucose 134 H Calculated Osmolality 272 L Calcium 7.6 L Corrected Calcium 8.2 L Total Bilirubin 0.4 AST 42 H ALT 35 Alkaline Phosphatase 83 Total Protein 5.6 L Albumin 3.3 L Globulin 2.3 Albumin/Globulin Ratio 1.4 Vancomycin Trough < 3.0 L Coccidioides IgM Ab Positive A ABG Interpretation ABG results: 01/04/25 18:00 ABG pH 7.47 H ABG pCO2 31 L ABG pO2 74 L ABG HCO3 22 ABG O2 Saturation 97 ABG Base Excess -1 Quality Measures Quality Measures sepsis Current suspected stage: sepsis Possible source: unknown Blood cultures ordered: completed in ED Antibiotic ordered: Yes Assessment & Plan Assessment Current Active Medications: Generic Name Dose Route Start Last Admin Trade Name Freq PRN Reason Stop Dose Admin Acetaminophen 650 mg 01/04/25 22:18 01/06/25 03:28 Acetaminophen 325 Mg Tablet PO 02/03/25 22:17 650 mg Q6H PRN Administration Fever >100.3 or pain Enoxaparin Sodium 40 mg 01/05/25 09:00 01/06/25 09:04 Enoxaparin Sod Inj 40 Mg/0.4 Ml Syringe SC 01/19/25 08:59 40 mg QDAY NEREYDA Administration Fluconazole 400 mg 01/05/25 13:00 01/06/25 09:04 Fluconazole 100 Mg Tablet PO 01/12/25 12:59 400 mg QDAY NEREYDA Administration Azithromycin 500 mg/ Sodium 250 mls @ 250 mls/hr 01/05/25 10:41 01/06/25 09:04 Chloride IV 01/12/25 10:40 250 mls/hr QDAY NEREYDA Administration Ceftriaxone Sodium/Dextrose 1 gm in 50 mls @ 100 mls/hr 01/05/25 12:15 01/06/25 09:04 Rocephin/D5w 1gm Iv Premix IV 01/12/25 12:14 100 mls/hr QDAY NEREYDA Administration Potassium Chloride 10 meq in 100 mls @ 100 mls/hr 01/06/25 08:45 01/06/25 10:55 Kcl Ivpb IV 01/06/25 12:44 75 mls/hr Q1H NEREYDA Administration Ondansetron HCl 4 mg 01/04/25 22:18 Ondansetron Inj 2 Mg/Ml Inj 2 Ml IVP 02/03/25 22:17 Q6H PRN NAUSEA OR VOMITING Protocol Sennosides 1 tab 01/04/25 22:18 Senna Tablet PO 02/03/25 22:17 QDAY PRN constipation Protocol Plan Summary:A 39-year-old female patient with past medical history of methamphetamine abuse, was brought after she was found obtunded by EMS. Patient was admitted for heatstroke versus sepsis secondary to pneumonia versus UTI. # Acute encephalopathy Ddx: Infection possible UTI/early pneumonia, heat exposure, drug use, decreased hydration. Found unresponsive under the bridge, On EMS arrival, the patient was noted to have pinpoint pupils and a respiratory rate of 6. She was administered three doses of intranasal Narcan totaling 6 mg, with minimal to no response improvement in mental status. CT spine negative, CT head negative. BP 103/88, fever 103.1, leukocytosis 13.8, normal lactic acid. Possible source of infection includes UTI versus early pneumonia. Plan - DC fluids - Acetaminophen 650 mg p.o. - Will de-escalate the patient to Rocephin and azithromycin - urine culture pending - blood culture pending - cocci serology peniding #pneumonia likely with gram-negative bacteria versus coccidiomycosis #Coccidiomycosis, pulmonary Patient was found obtunded, has SIRS response with elevated body temperature, heart rate of 93, chest x-ray showed infiltrate, WBC elevated of 30.3 Cocci serology came back positive Today patient reported that she has history of 1 day of dry cough., 24-hour blood culture are negative. Plan ? Continue the patient on ceftriaxone and azithromycin ? Follow-up in the blood culture and urine culture ? Continue the patient on fluconazole 400 mg p.o. daily for at least 3 months patient has to follow-up with her PCP to confirm resolution of her symptoms. ? Follow-up on the confirmatory test for the cocci ? Oxygen as needed #UTI Plan ? 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 FEn: regular DVT prophylaxis: Lovenox CODE STATUS: Full code - Patient's plan and care discussed with my attending, Dr. Baljeet Chin MD Internal Medicine PGY-2 Attending Provider Attestation/Addendum I have discussed and was present for the essential components of the history, physical examination, diagnosis, and treatment plan with the resident. I agree with the patient's care as documented by the resident and amended herein by me. Robert Delong DO. Patient seen and evaluated this AM. No acute events overnight, vital signs stable, Tmax overnight 103.1. WBC down trended to 6.3, potassium low at 3 which will be repleted. Will continue antibiotics for possible superimposed pneumonia likely secondary to gram-negative bacteria and fluconazole for coccidiomycosis. Blood cultures NGTD, urine cultures pending, likely discharge in 1 to 2 days pending continued clinical improvement. Although this document has been carefully reviewed, there may still be some phonetic and other typographical errors. These errors are purely grammatical due to imperfections in the software program and should not be construed in any way to compromise the substance of the patient's medical care during this visit.
[2025-01-06] MEDS: POTASSIUM CHL 10 mEq IVPB 10 MEQ/100 ML BAG 50 MEQ IV (14:10)
[2025-01-07] VITALS: BP 122/83; PULSE 94; RESP 18; TEMP 36.2; O2SAT 97
[2025-01-07 04:00] VITALS: BP 131/91; PULSE 95; RESP 18; TEMP 36.2; O2SAT 97
[2025-01-07 05:58] LABS: Basophils % (Auto) 1 % (0-2.5); Eosinophils # (Auto) 0.1 Thou/mm3 (0.0-0.5); Eosinophils % (Auto) 2 % (0-10); Hematocrit 29.3 % (36.0-46.0); Hemoglobin 9.2 g/dL (12.0-16.0); Immature Granulocytes % (Auto) 1 % (0-0); Immature Granulocytes Auto 0.04 Thou/mm3 (0.00-0.00); Lymphocytes # (Auto) 1.4 Thou/mm3 (1.0-4.8); Lymphocytes % (Auto) 25 % (10-50); Mean Corpuscular HGB Conc 31.4 g/dl (31.0-37.0); Mean Corpuscular Hemoglobin 22.5 pg (25.0-35.0); Mean Corpuscular Volume 72 fL (80-100); Monocytes # (Auto) 0.8 Thou/mm3 (0.0-0.8); Monocytes % (Auto) 14 % (0-12); Neutrophils # (Auto) 3.2 Thou/mm3 (1.8-7.7); Neutrophils % (Auto) 58 % (37-80); Nucleated Red Blood Cell % 0 /100 WBC (0); Platelet Count 211 Thou/mm3 (140-440); RDW Standard Deviation 46.3 fL (36.4-46.3); Red Blood Count 4.08 Miln/mm3 (4.00-5.20); White Blood Count 5.4 Thou/mm3 (3.6-11.0)
[2025-01-07 06:24] LABS: Alanine Aminotransferase 40 U/L (10-49); Albumin, Serum 3.4 gm/dL (3.5-5.0); Albumin/Globulin Ratio 1.4 (1.2-2.2); Alkaline Phosphatase 82 U/L (46-116); Anion Gap 9 (7-16); Aspartate Amino Transferase 41 U/L (0-34); BUN/Creatinine Ratio 8 Ratio (12-20); Bilirubin,Total 0.3 mg/dL (0.3-1.2); Blood Urea Nitrogen 6 mg/dL (9-23); Calcium (Corrected) 8.5 mg/dL (8.5-10.1); Carbon Dioxide 23.6 mMol/L (20.0-31.0); Chloride 105 mMol/L (98-107); Creatinine (Component) 0.8 mg/dL (0.6-1.3); Estimated Creatinine Clearance 104.6 mL/min (>60); Globulin 2.5 gm/dL (2.3-3.5); Glucose 125 mg/dL (74-106); Osmolality,Calculated 274 (275-295); Potassium 3.7 mMol/L (3.4-5.1); Sodium 138 mMol/L (136-145); Total Protein 5.9 gm/dL (5.7-8.2); eGFR > 60 See Note
[2025-01-07 08:00] VITALS: BP 112/76; PULSE 67; RESP 17; TEMP 36.4; O2SAT 97
[2025-01-07 08:28] VITALS: PULSE 88; RESP 16; RESP 98
[2025-01-07] MEDS: FLUCONAZOLE 100 MG TABLET 400 MG PO (09:29)
[2025-01-07] MEDS: AZITHROMYCIN INJ 500 MG in SODIUM CHLORIDE 0.9% 250 ML 250 ML 250 MG IV (09:29)
[2025-01-07] MEDS: cefTRIAXone/D5w 1gm IV premix 1 GM/50 ML BAG IV (09:29)
[2025-01-07] MEDS: ENOXAPARIN SOD INJ 40 MG/0.4 ML SYRINGE SC (09:29)
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
[2025-01-07 12:00] VITALS: BP 117/83; PULSE 75; RESP 16; TEMP 36.4; O2SAT 98
== END 2025-01-07 12:07 | disposition home or self-care (01) | DRG 720 ==
LOC: SERX 20:21 → SERHOLD 22:48 → S3SX 01-05 06:10
PROVIDERS: Student in an Organized Health Care Education/Training Program; Admitting Provider Internal Medicine; Emergency Provider Family Medicine; PCP Family Medicine; Visit Provider Student in an Organized Health Care Education/Training Program
DX: A41.9 Sepsis, unspecified organism (principal); G93.41 Metabolic encephalopathy; I95.9 Hypotension, unspecified; J69.0 Pneumonitis due to inhalation of food and vomit; F17.210 Nicotine dependence, cigarettes, uncomplicated; N39.0 Urinary tract infection, site not specified; F10.10 Alcohol abuse, uncomplicated; F15.10 Other stimulant abuse, uncomplicated; B38.2 Pulmonary coccidioidomycosis, unspecified; Z59.00 Homelessness unspecified; Y90.0 Blood alcohol level of less than 20 mg/100 ml
CPT/HCPCS: 36415; 36600; 70450; 71045; 72125; 80053; 80202; 80307; 80320; 80329; 81001; 81025; 82550; 82803; 83605; 83735; 84100; 84145; 84484; 85025; 86635; 87040; 87400; 87811; 93005; 96365; 96367; 99291; 99292; J0131; J0456; J0696; J1650; J1885; J2543; J3370; J3475; J3480; J7030; J7050; A9270; G0480

== ENCOUNTER 2025-01-22 21:16 | Emergency (ER) | payer MEDICAID, SELFPAY ==
[2025-01-22 21:19] VITALS: PULSE 97; O2SAT 99
--- NOTE | 2025-01-22 23:12 | PC.NURSE ---
NO ANSWER AT ER LOBBY OR OUTSIDE ER TO DO V/S.
--- NOTE | 2025-01-22 23:19 | PC.NURSE ---
NO ANSWER AT ER LOBBY OR OUTSIDE ER TO DO V/S.
--- NOTE | 2025-01-22 23:24 | PC.NURSE ---
NO ANSWER AT ER LOBBY OR OUTSIDE ER TO BE V/S.
== END 2025-01-22 23:25 | disposition left against medical advice (07) ==
PROVIDERS: Emergency Provider Emergency Medicine
DX: Z53.21 Procedure and treatment not carried out due to patient leaving prior to being seen by health care provider (principal)

== ENCOUNTER 2025-04-01 21:44 | Emergency (ER) | payer MEDICAID, SELFPAY ==
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
[2025-04-01 21:46] VITALS: BMI 35.5
--- NOTE | 2025-04-01 21:47 | XR_ITS ---
Examination: Forearm, right, 2 views. Technique: Forearm, AP, lateral 2 views Date and time of exam: April 01, 2025 2146 hours INDICATIONS: Images of foreign today, forearm pain. FINDINGS: No acute fracture No dislocation No foreign body IMPRESSION: No acute fracture
--- NOTE | 2025-04-01 21:47 | XR_ITS ---
Examination: Left femur 2 views TECHNIQUE: AP lateral left femur 2 views Date and time: April 01, 2025, 2158 hours. INDICATIONS: Injury to the leg today, leg pain. FINDINGS: No hip fracture or dislocation Shaft of the femur intact IMPRESSION: No acute fracture
--- NOTE | 2025-04-01 21:47 | XR_ITS ---
Examination: Tibia-Fibula, left , 2 views Technique: Tibia-fibula AP lateral 2 views Date and time of exam: April 02, 2025 2146 hours INDICATIONS: Injury to lower leg today, lower leg pain. FINDINGS: No fracture or dislocation No foreign body IMPRESSION: No fracture or dislocation
[2025-04-01 21:48] VITALS: BP 123/83; PULSE 94; RESP 19; TEMP 36.8; O2SAT 100
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
== END 2025-04-02 00:04 | disposition home or self-care (01) ==
PROVIDERS: Emergency Provider Emergency Medicine; PCP Family Medicine
DX: S09.90XA Unspecified injury of head, initial encounter (principal); S89.92XA Unspecified injury of left lower leg, initial encounter; S19.9XXA Unspecified injury of neck, initial encounter; S29.9XXA Unspecified injury of thorax, initial encounter; S59.911A Unspecified injury of right forearm, initial encounter; S39.91XA Unspecified injury of abdomen, initial encounter; S39.93XA Unspecified injury of pelvis, initial encounter; F17.200 Nicotine dependence, unspecified, uncomplicated; Y04.2XXA Assault by strike against or bumped into by another person, initial encounter
CPT/HCPCS: 70450; 70486; 71250; 72125; 73090; 73552; 73590; 74176; 99284

== ENCOUNTER 2025-06-17 01:02 | Emergency (ER) | payer MEDICAID, SELFPAY ==
[2025-06-17 01:03] VITALS: BMI 37.8
[2025-06-17 01:19] LABS: Influenza A Ag Negative; Influenza B Ag Negative
[2025-06-17 01:20] VITALS: BP 133/94; PULSE 95; RESP 17; TEMP 36.8; O2SAT 98
--- NOTE | 2025-06-17 01:25 | XR_ITS ---
EXAMINATION: PA chest single view TECHNIQUE: Upright PA chest single view Date and time: June 17, 2025, 0130 hours INDICATIONS: Shortness of breath congestion coughing beginning 2 days ago. FINDINGS: Normal heart size No pneumonia The [place] structures are intact. IMPRESSION: No active disease
[2025-06-17] MEDS: MethylPREDNISolone SOD SUCC 62.5 MG/ML 2ML VIAL 125 MG IM (01:36)
[2025-06-17] MEDS: ALBUTEROL/IPRATROPIUM (Duoneb) RT SOL 3 ML NEBU INH (01:43)
[2025-06-17 01:44] VITALS: PULSE 101; RESP 20; O2SAT 100
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
== END 2025-06-17 02:27 | disposition home or self-care (01) ==
PROVIDERS: Nurse Practitioner Family; Emergency Provider Emergency Medicine; PCP Family Medicine
DX: J20.9 Acute bronchitis, unspecified (principal); J45.909 Unspecified asthma, uncomplicated
CPT/HCPCS: 71045; 87502; 87635; 87811; 94640; 96372; 99283; A9270; J2919